=== PATIENT | female | born 1975 | race Caucasian/White ===

== ENCOUNTER 2022-08-07 15:30 | Emergency (ER) | payer OTHER, SELFPAY ==
[2022-08-07 15:35] VITALS: BP 153/95; PULSE 54; PULSE 64; PULSE 69; RESP 13; RESP 20; RESP 21; TEMP 36.8; O2SAT 100; BMI 20.4
--- NOTE | 2022-08-07 15:53 | XR_ITS ---
The [address] [address] Patient Name: DO QUINTANILLA MRN: [id number] date: 1975 Sex: F Assigned Patient Location: ER Current Patient Location: ER Accession/Order Number: [id number] Exam Date: 08/07/2022 16:15 Report Date: 08/07/2022 16:47 At the request of: CRESCENCIO WILLIAMSON Procedure: XR chest 2V EXAMINATION: XR chest 2V HISTORY: cp ; chest pain, left arm pain and numbness COMPARISON: XR chest 10/08/2015 FINDINGS: LUNGS: No significant pulmonary parenchymal abnormalities. VASCULATURE: No increased pulmonary vasculature. PLEURA: No pneumothorax, effusion, or pleural thickening. CARDIAC: No cardiomegaly or cardiac silhouette abnormality. MEDIASTINUM: No visible mass or adenopathy. BONES: No fracture or visible bone lesion. OTHER: Negative. IMPRESSION: 1. No acute cardiopulmonary process. Electronically authenticated by: EMILEE LONG Date: 08/07/2022 16:47
--- NOTE | 2022-08-07 15:54 | ECG_ITS ---
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
[2022-08-07 15:56] VITALS: PULSE 62
[2022-08-07 16:07] LABS: Basophils Percent Auto 0.5 % (0.2-2.0); Eosinophils Percent Auto 0.5 % (0.9-7.0); Hematocrit 40.5 % (36.0-48.0); Hemoglobin 14.2 g/dL (12.0-16.0); Immature Granulocytes Abs Auto 0.02 10^3/uL (0.00-0.03); Immature Granulocytes Pct Auto 0.3 % (0.0-0.5); Lymphocytes Absolute Auto 2.2 10^3/uL (1.2-3.8); Lymphocytes Percent Auto 36.2 % (20.5-60.0); Mean Corpuscular HGB Conc 35.1 g/dL (29.9-35.2); Mean Corpuscular Hemoglobin 29.9 pg (26.7-34.0); Mean Corpuscular Volume 85.3 fL (81.0-99.0); Monocytes Absolute Auto 0.5 10^3/uL (0.3-0.8); Monocytes Percent Auto 7.9 % (1.7-12.0); Neutrophils Absolute Auto 3.4 10^3/uL (1.4-6.5); Neutrophils Percent Auto 54.6 % (43.0-75.0); Platelet Count 396 10^3/uL (150-450); Red Blood Count 4.75 10^6/uL (4.20-5.40); Red Cell Distribution Width 12.2 % (11.0-15.0); White Blood Count 6.2 10^3/uL (4.0-11.0)
--- NOTE | 2022-08-07 16:07 | ED.GENADUL1 ---
HPI - General Adult General Chief complaint: Chest Pain Stated complaint: chest pain radiating down arm, panic attack Time Seen by Provider: 08/07/22 15:34 Source: patient Mode of arrival: Wheelchair Limitations: physical limitation Limitations comment: weakness History of Present Illness HPI narrative: patient is a 46-year-old female who is presenting to the Emergency Room with chief complaint of chest tightness, right elbow pain, shoulder pain, and shortness of breath since this morning. Patient woke up and had her symptoms of pain in the left arm, shoulder, and the left side of her neck. Patient has no headache, no posterior neck pain. No dull pain, nausea, vomiting. Patient had bronchitis that was diagnosed approximately July 25 or , patient was placed in a Z-Freeman. Patient cannot use steroids because a causing anxiety along with she cannot use albuterol inhaler because a causing anxiety and panic attacks. Patient has a history of smoking, she's quit smoking, quit doing [place] medical marijuana as well. Patient has had a history of being on 23 different medications, patient has gotten off all of her medications. The multiple medications were for anxiety/depression, irritable bowel syndrome and other medical problems. Patient has no cardiac history. Patient stated that she had a transient ischemic attack when she was younger. Patient has seen [facility] in the past, but she still seen him it is on no blood pressure medication at this time. Patient has no history of acute current syndrome. Patient has no cocaine use daily, currently not a smoker, no family history of cardiac disease. Patient's heart score is 1 because of age Related Data Home Medications Medication Instructions Recorded Confirmed clonazepam 0.5 mg tablet 0.5 mg PO Q8H PRN ANXIETY 08/07/22 08/07/22 Allergies Allergy/AdvReac Type Severity Reaction Status Date / Time cyclobenzaprine Allergy Severe Hives Verified 08/07/22 15:45 [From Flexeril] dicyclomine [From Bentyl] Allergy Severe Hives Verified 08/07/22 15:45 doxycycline Allergy Severe shortness Verified 08/07/22 15:47 of breath iodine Allergy Severe Anaphylaxis Verified 08/07/22 15:45 prochlorperazine Allergy Severe Hives Verified 08/07/22 15:45 [From Compazine] morphine Allergy Unknown Verified 08/07/22 15:45 Review of Systems ROS Narrative All systems are negative except as noted/marked. All systems reviewed and otherwise negative. PFSH [facility] Social History Smoking status: Former smoker Exam Narrative Exam Narrative: Nurses note and vital signs reviewed and patient is not hypoxic. General: The patient appears well and in no apparent distress. Patient is resting comfortably on cart. Patient is not toxic, lethargic, or listless Skin: Warm, dry, no pallor noted. There is no rash noted. No petechiae, purpura. Head: Normocephalic, atraumatic Eye: Normal conjunctiva, no drainage, EOMI. PERRL Ears, Nose, Mouth, and Throat: oral mucosa is moist. Nares patent. Mouth without vesicles. Cardiovascular: Regular Rate and Rhythm, no murmur, gallop, rub. no reproducible tenderness to palpation to the anterior, lateral, posterior chest wall. No chest pain or chest wall pain elicited with range of motion of left shoulder. Respiratory: Patient is in no distress, no accessory muscle use, lungs are clear to auscultation, no wheezing, rales or rhonchi Back: non-tender, no CVA tenderness bilaterally to percussion. No CT LS midline pain GI: soft, no tenderness to palpation, no masses appreciated. No rebound, guarding, or rigidity noted. No flank pain bilateral, No distention Musculoskeletal: Patient has full range of motion of all of the extremities, no motor, sensory, or focal neurological deficit. Full range of motion of left shoulder, elbow, wrist and hand without difficulty or pain. Neurological: A&O x3, normal speech Psychiatric: Cooperative Constitutional Vital Signs - 24 hr 08/07/22 15:35 08/07/22 15:35 08/07/22 15:35 Temperature 98.3 F Pulse Rate 64 54 L Pulse Rate [Monitor] 69 Respiratory Rate 20 13 21 Blood Pressure 153/95 H 153/95 H Blood Pressure [Left Arm] 153/95 H Pulse Oximetry 100 100 Oxygen Delivery Method Room Air Course Vital Signs Vital signs: Vital Signs Temperature 98.3 F 08/07/22 15:35 Pulse Rate 64 08/07/22 15:35 Respiratory Rate 20 08/07/22 15:35 Blood Pressure 153/95 H 08/07/22 15:35 Pulse Oximetry 100 08/07/22 15:35 Oxygen Delivery Method Room Air 08/07/22 15:35 Temperature 98.3 F 08/07/22 15:35 Pulse Rate 69 08/07/22 15:35 Respiratory Rate 21 08/07/22 15:35 Blood Pressure 153/95 H 08/07/22 15:35 Pulse Oximetry 100 08/07/22 15:35 Oxygen Delivery Method Room Air 08/07/22 15:35 Medical Decision Making MDM Narrative Medical decision making narrative: patient chest x-ray, EKG, lab work shows no acute changes. Patient was given 1 L of IV fluid. Patient was relieved is no acute findings. Patient stated she's had some mild intermittent coordination issues the last 1-2 days. Patient has had no coordination issues today. Patient will follow-up with PCP and referred to neurology as needed. Patient has no other questions at discharge. Patient did not want any prednisone or albuterol inhaler because she may causes her to be anxious and having panic attacks. Patient's heart score is 1 due to age, no indication for admission at this time. Medical Records Medical records narrative: chest x-ray shows no acute cardiopulmonary disease, no infiltrate, no effusion. Lab Data Lab results reviewed: Yes I reviewed the patient's lab results Labs: Lab Results 08/07/22 Range/Units 15:57 WBC 6.2 (4.0-11.0) 10^3/uL RBC 4.75 (4.20-5.40) 10^6/uL Hgb 14.2 (12.0-16.0) g/dL Hct 40.5 (36.0-48.0) % MCV 85.3 (81.0-99.0) fL MCH 29.9 (26.7-34.0) pg MCHC 35.1 (29.9-35.2) g/dL RDW 12.2 (11.0-15.0) % Plt Count 396 (150-450) 10^3/uL MPV 9.0 L (9.5-13.5) fL Neut % (Auto) 54.6 (43.0-75.0) % Lymph % (Auto) 36.2 (20.5-60.0) % [place] % (Auto) 7.9 (1.7-12.0) % Eos % (Auto) 0.5 L (0.9-7.0) % Baso % (Auto) 0.5 (0.2-2.0) % Neut # (Auto) 3.4 (1.4-6.5) 10^3/uL Lymph # (Auto) 2.2 (1.2-3.8) 10^3/uL [place] # (Auto) 0.5 (0.3-0.8) 10^3/uL Eos # (Auto) 0.0 (0.0-0.7) 10^3/uL Baso # (Auto) 0.0 (0.0-0.1) 10^3/uL Abs Immat Gran (auto) 0.02 (0.00-0.03) 10^3/uL Imm/Tot Granulo (auto) 0.3 (0.0-0.5) % D-Dimer <0.19 (<=0.59) mg/L FEU Sodium 137 (136-145) mmol/L Potassium 3.5 (3.5-5.1) mmol/L Chloride 104 (98-107) mmol/L Carbon Dioxide 24.9 (21.0-32.0) mmol/L Anion Gap 11.6 BUN 15.0 (7.0-18.0) mg/dL Creatinine 0.85 (0.55-1.02) mg/dL Est GFR ( Amer) >60 (>=60) Est GFR (Non-Af Amer) >60 (>=60) BUN/Creatinine Ratio 17.6 Glucose 110 H (74-106) mg/dL Calcium 8.8 (8.5-10.1) mg/dL Total Bilirubin 0.4 (0.2-1.0) mg/dL AST 13 L (15-37) U/L ALT 18 (14-59) U/L Alkaline Phosphatase 47 (46-116) U/L Troponin I High Sens <4.0 L (4.0-51.3) pg/mL NT-Pro-B Natriuret Pep 42.0 (<=450.0) pg/mL Total Protein 7.5 (6.4-8.2) g/dL Albumin 4.0 (3.4-5.0) g/dL Globulin 3.5 g/dL Albumin/Globulin Ratio 1.1 Lipase 104.0 (73.0-393.0) U/L ECG Data Attestation: I personally reviewed and interpreted this ECG as follows: Interpretation: EKG interpretation. No sinus rhythm at 60 beats a minute. Normal axis deviation. No acute ST elevation, no acute ectopy. QTC of 383. Discharge Plan Discharge Chief Complaint: Chest Pain Clinical Impression: Dyspnea, Arm pain, left, Atypical chest pain Patient Disposition: Home, Self-Care Prescriptions / Home Meds: No Action clonazepam 0.5 mg tablet 0.5 mg PO Q8H PRN (Reason: ANXIETY ) Instructions: Chest Pain (ED), Dyspnea (ED), Arm Pain (ED) Additional Instructions: follow-up with PCP and neurology if needed for any type of coordination difficulties that you're discussing that occurred in the near past. Increase fluids, Stand Alone Forms: Portal Instructions Referrals: Carlos Dempsey MD [Primary Care Provider] - 1 week
[2022-08-07] MEDS: ASPIRIN 81 MG TAB.CHEW 162 MG PO (16:20)
[2022-08-07] MEDS: 0.9 % SODIUM CHLORIDE 1,000 ML 1000 ML IV (16:20)
[2022-08-07 16:23] LABS: D Dimer <0.19 mg/L FEU (<=0.59)
[2022-08-07 16:31] LABS: Alanine Aminotransferase 18 U/L (14-59); Albumin Globulin Ratio 1.1; Alkaline Phosphatase 47 U/L (46-116); Anion Gap 11.6; Aspartate Amino Transferase 13 U/L (15-37); BUN Creatinine Ratio 17.6; Bilirubin Total 0.4 mg/dL (0.2-1.0); Calcium 8.8 mg/dL (8.5-10.1); Carbon Dioxide 24.9 mmol/L (21.0-32.0); Chloride 104 mmol/L (98-107); Estimated GFR (African America >60 (>=60); Estimated GFR (Non-African Ame >60 (>=60); Globulin 3.5 g/dL; Glucose 110 mg/dL (74-106); Potassium 3.5 mmol/L (3.5-5.1); Sodium 137 mmol/L (136-145); Total Protein 7.5 g/dL (6.4-8.2); Troponin I High Sensitivity <4.0 pg/mL (4.0-51.3)
[2022-08-07 17:39] VITALS: BP 112/83
== END 2022-08-07 17:44 | disposition home or self-care (01) ==
PROVIDERS: Emergency Provider Emergency Medicine; PCP Family Medicine
DX: R07.89 Other chest pain (principal); R06.00 Dyspnea, unspecified; M79.602 Pain in left arm; Z87.891 Personal history of nicotine dependence; Z79.899 Other long term (current) drug therapy; F41.9 Anxiety disorder, unspecified
CPT/HCPCS: 36415; 71046; 80053; 83690; 83880; 84484; 85025; 85378; 93005; 99285

== ENCOUNTER 2022-12-15 16:47 | Emergency (ER) | payer OTHER, MEDICAID, SELFPAY ==
[2022-12-15 16:58] VITALS: BP 139/82; PULSE 71; RESP 18; O2SAT 99; BMI 29.5
--- NOTE | 2022-12-15 17:17 | ED.ABDPAIN1 ---
HPI - Abdominal Pain General Chief Complaint: Abdominal Pain Stated Complaint: Flank Pain Time Seen by Provider: 12/15/22 17:08 Source: patient Mode of arrival: walk-in History of Present Illness HPI narrative: patient is a 47-year-old female who presents the emergency department for the evaluation of left flank pain for the last week. She states she was initially seen at the [place] emergency Department and they diagnosed her with muscular skeletal pain radiating from the left flank. She states they did a chest x-ray that was unremarkable. She was then seen at urgent care the next day and diagnosed with urinary tract infection. She states she was contacted four days ago that she was on the wrong antibiotic in a new antibiotic was called in for her. She has been taking this for the last four days. She presents to the Emergency Room today because earlier today she had what she believed were Covid-type symptoms of hot and cold chills and nausea. She states the symptoms resolved but she had a return of pain to the left flank and feels as though the left side of her abdomen is swollen. She reports pain radiating from the left flank into the left abdomen, no urinary symptoms. She has had diarrhea. She has an IUD in place, no concern for . Related Data Home Medications Medication Instructions Recorded Confirmed clonazepam 0.5 mg tablet 0.5 mg PO Q8H PRN ANXIETY 08/07/22 08/07/22 Previous Rx's Medication Instructions Recorded methocarbamol 750 mg tablet 750 mg PO TID PRN pain #20 tabs 12/15/22 naproxen sodium 550 mg tablet 550 mg PO BID PRN pain #10 tabs 12/15/22 ondansetron 4 mg disintegrating 4 mg PO Q6H PRN nausea and 12/15/22 tablet vomiting #12 tabs Allergies Allergy/AdvReac Type Severity Reaction Status Date / Time cyclobenzaprine Allergy Severe Hives Verified 08/07/22 15:45 [From Flexeril] dicyclomine [From Bentyl] Allergy Severe Hives Verified 08/07/22 15:45 doxycycline Allergy Severe shortness Verified 08/07/22 15:47 of breath iodine Allergy Severe Anaphylaxis Verified 08/07/22 15:45 prochlorperazine Allergy Severe Hives Verified 08/07/22 15:45 [From Compazine] morphine Allergy Unknown Verified 08/07/22 15:45 Review of Systems ROS Constitutional Reports: chills; Denies: fever Ears, nose, mouth, and throat Reports: throat pain Cardiovascular Denies: chest pain Respiratory Denies: shortness of breath or cough Gastrointestinal Reports: abdominal pain, nausea, vomiting and diarrhea Genitourinary Denies: painful urination or urinary frequency Musculoskeletal Reports: back pain; Denies: neck pain Integumentary/Breast Denies: rash Neurological Denies: headache PFSH PFSH Social History Smoking status: Former smoker Exam Narrative Exam Narrative: Gen.: Awake, alert, in no distress Head: Normocephalic, atraumatic ENT: Moist mucous membranes Respiratory: No respiratory distress, lungs clear bilaterally Cardio: Regular rate and rhythm Gastrointestinal: Abdomen is soft, nondistended and tender to palpation in the left upper quadrant Back: no CVA tenderness, no rashes noted Extremities: Moves extremities equally Psych: Normal mood and affect Neuro: No focal neuro deficit Skin: Warm, dry, intact Constitutional Vital Signs, click to edit/add: Last Vital Signs Pulse 71 12/15/22 16:58 Resp 18 12/15/22 16:58 BP 139/82 12/15/22 16:58 Pulse Ox 99 12/15/22 16:58 O2 Del Method Room Air 12/15/22 16:58 Course Vital Signs Vital signs: Vital Signs Pulse Rate 71 12/15/22 16:58 Respiratory Rate 18 12/15/22 16:58 Blood Pressure 139/82 12/15/22 16:58 Pulse Oximetry 99 12/15/22 16:58 Oxygen Delivery Method Room Air 12/15/22 16:58 Pulse Rate 71 12/15/22 16:58 Respiratory Rate 18 12/15/22 16:58 Blood Pressure 139/82 12/15/22 16:58 Pulse Oximetry 99 12/15/22 16:58 Oxygen Delivery Method Room Air 12/15/22 16:58 MDM - Abdominal Pain MDM Narrative Medical decision making narrative: patient was treated with IV fluids, Toradol, Zofran. She had no episodes of emesis in the Emergency Room. Her lab studies including urine specimen are unremarkable although she was noted to have mild hyponatremia. Covid test was done at her request, this is unremarkable. CT of the abdomen and pelvis was done due to pain in the left flank. This shows no evidence of acute abdominal pathology. She had a chest x-ray last week at [place] [facility]. Symptoms may be viral versus musculoskeletal, patient has no fevers, tachycardia, or vomiting in the Emergency Room. She was reexamined by attending physician. she reports improvement with Toradol. She will be discharged home with Zofran, NSAIDs, Robaxin. Follow-up with PCP and return to the Emergency Room if symptoms change or worsen. Medical Records Attestation: I reviewed the patient's medical records. Lab Data Attestation: I reviewed the patient's lab results. Labs: Lab Results 12/15/22 12/15/22 12/15/22 Range/Units 17:05 17:15 17:35 WBC 5.0 (4.0-11.0) 10^3/uL RBC 5.24 (4.20-5.40) 10^6/uL Hgb 15.0 (12.0-16.0) g/dL Hct 45.1 (36.0-48.0) % MCV 86.1 (81.0-99.0) fL MCH 28.6 (26.7-34.0) pg MCHC 33.3 (29.9-35.2) g/dL RDW 12.1 (11.0-15.0) % Plt Count 360 (150-450) 10^3/uL MPV 8.9 L (9.5-13.5) fL Neut % (Auto) 39.3 L (43.0-75.0) % Lymph % (Auto) 50.4 (20.5-60.0) % [place] % (Auto) 9.3 (1.7-12.0) % Eos % (Auto) 0.2 L (0.9-7.0) % Baso % (Auto) 0.4 (0.2-2.0) % Neut # (Auto) 2.0 (1.4-6.5) 10^3/uL Lymph # (Auto) 2.5 (1.2-3.8) 10^3/uL [place] # (Auto) 0.5 (0.3-0.8) 10^3/uL Eos # (Auto) 0.0 (0.0-0.7) 10^3/uL Baso # (Auto) 0.0 (0.0-0.1) 10^3/uL Abs Immat Gran (auto) 0.02 (0.00-0.03) 10^3/uL Imm/Tot Granulo (auto) 0.4 (0.0-0.5) % Sodium 128 L (136-145) mmol/L Potassium 3.5 (3.5-5.1) mmol/L Chloride 96 L (98-107) mmol/L Carbon Dioxide 22.2 (21.0-32.0) mmol/L Anion Gap 13.3 BUN 8.0 (7.0-18.0) mg/dL Creatinine 0.88 (0.55-1.02) mg/dL Est GFR ( Amer) >60 (>=60) Est GFR (Non-Af Amer) >60 (>=60) BUN/Creatinine Ratio 9.1 Glucose 96 (74-106) mg/dL Lactate 1.1 (0.4-2.0) mmol/L Calcium 9.0 (8.5-10.1) mg/dL Total Bilirubin 0.3 (0.2-1.0) mg/dL AST 14 L (15-37) U/L ALT 18 (14-59) U/L Alkaline Phosphatase 72 (46-116) U/L Total Protein 8.3 H (6.4-8.2) g/dL Albumin 4.4 (3.4-5.0) g/dL Globulin 3.9 g/dL Albumin/Globulin Ratio 1.1 Lipase 27.0 (16.0-77.0) U/L Serum HCG, Qual Negative (NEGATIVE) Urine Color Lt. yellow (YELLOW) Urine Clarity Clear (CLEAR) Urine pH 6.0 (5.0-9.0) Ur Specific [place] 1.025 (1.005-1.025) Urine Protein Negative (NEG/TRACE) mg/dL Urine Glucose (UA) Negative (NEGATIVE) mg/dL Urine Ketones 15 A (NEGATIVE) mg/dL Urine Occult Blood Negative (NEGATIVE) Urine Nitrite Negative (NEGATIVE) Urine Bilirubin Negative (NEGATIVE) Urine Urobilinogen 0.2 (0.2-1.0) EU/dL Ur Leukocyte Esterase Negative (NEGATIVE) SARS-CoV-2 (PCR) Negative (NEGATIVE) Imaging Data CT scan - abdomen: Attestation: I have reviewed the pertinent imaging results. Radiologist's impression: Procedure: CT abdomen pelvis wo con EXAM: CT abdomen pelvis wo con TECHNIQUE: Axial CT images were obtained of the abdomen and pelvis without intravenous contrast. Sagittal and coronal reformatted images were also obtained. Dose reduction techniques were achieved by using automated exposure control and/or adjustment of mA and/or kV according to patient size and/or use of iterative reconstruction technique. HISTORY: Left flank COMPARISON: None. FINDINGS: Lower chest: The lower lungs are clear. Liver: Tiny cyst at the periphery of segment 8 of the liver. Gallbladder: The gallbladder is unremarkable. There is no intra or extrahepatic biliary dilatation. Pancreas: The pancreas is homogeneous without evidence for mass lesion or inflammation. Spleen: The spleen is unremarkable without evidence for mass lesion. Adrenal glands: The adrenal glands are unremarkable Kidneys and bladder: The kidneys are unremarkable with no evidence for mass lesion, hydronephrosis or inflammation. The ureters demonstrate normal caliber. The urinary bladder appears unremarkable given lack of distention. GI Tract: Stomach is unremarkable. Visualized small bowel is unremarkable without evidence for obstruction or active inflammation. The appendix is unremarkable.The visualized portion of the large bowel is unremarkable. Reproductive: Intrauterine device in place. Lymph nodes: No retroperitoneal or abdominal lymphadenopathy. Vascular: The aorta is not dilated. Peritoneum: No free intraperitoneal air or fluid. No acute inflammation. Abdominal wall: Unremarkable without acute abnormality. IMPRESSION: No acute abdominal pathology. No acute inflammatory process. No obstructing urinary tract stone. No evidence for bowel obstruction. Electronically authenticated by: AILEEN CLEVELAND Date: 12/15/2022 18:07 Discharge Plan Discharge Chief Complaint: Abdominal Pain Clinical Impression: Left flank pain Patient Disposition: Home, Self-Care Time of Disposition Decision: 18:19 Condition: Good Prescriptions / Home Meds: New methocarbamol 750 mg tablet 750 mg PO TID PRN (Reason: pain) Qty: 20 0RF ondansetron 4 mg tablet,disintegrating 4 mg PO Q6H PRN (Reason: nausea and vomiting) Qty: 12 0RF naproxen sodium 550 mg tablet 550 mg PO BID PRN (Reason: pain) Qty: 10 0RF No Action clonazepam 0.5 mg tablet 0.5 mg PO Q8H PRN (Reason: ANXIETY ) Instructions: Flank Pain (ED) Stand Alone Forms: Portal Instructions Referrals: Physician,Non-Staff, MD [Primary Care Provider] - 1 week
[2022-12-15] MEDS: 0.9 % SODIUM CHLORIDE 1,000 ML 999 ML IV (17:27)
[2022-12-15] MEDS: KETOROLAC TROMETHAMINE 30 MG/ML VIAL IVP (17:27)
[2022-12-15] MEDS: ONDANSETRON PF 4 MG/2 ML VIAL IV (17:28)
[2022-12-15 17:33] LABS: Basophils Percent Auto 0.4 % (0.2-2.0); Eosinophils Percent Auto 0.2 % (0.9-7.0); Hematocrit 45.1 % (36.0-48.0); Immature Granulocytes Abs Auto 0.02 10^3/uL (0.00-0.03); Immature Granulocytes Pct Auto 0.4 % (0.0-0.5); Lymphocytes Absolute Auto 2.5 10^3/uL (1.2-3.8); Lymphocytes Percent Auto 50.4 % (20.5-60.0); Mean Corpuscular HGB Conc 33.3 g/dL (29.9-35.2); Mean Corpuscular Hemoglobin 28.6 pg (26.7-34.0); Mean Corpuscular Volume 86.1 fL (81.0-99.0); Mean Platelet Volume 8.9 fL (9.5-13.5); Monocytes Absolute Auto 0.5 10^3/uL (0.3-0.8); Monocytes Percent Auto 9.3 % (1.7-12.0); Neutrophils Percent Auto 39.3 % (43.0-75.0); Platelet Count 360 10^3/uL (150-450); Red Blood Count 5.24 10^6/uL (4.20-5.40); Red Cell Distribution Width 12.1 % (11.0-15.0)
[2022-12-15 17:37] LABS: Bilirubin Urine NEGATIVE (NEGATIVE); Blood Urine NEGATIVE (NEGATIVE); Clarity Urine CLEAR (CLEAR); Color Urine LT. YELLOW (YELLOW); Glucose Urine UA NEGATIVE (NEGATIVE); Ketones Urine 15 mg/dL (NEGATIVE); Leukocyte Esterase Urine NEGATIVE (NEGATIVE); Nitrite Urine NEGATIVE (NEGATIVE); Protein Urine NEGATIVE (NEG/TRACE); Specific Gravity Urine 1.025 (1.005-1.025); Urobilinogen Urine 0.2 EU/dL (0.2-1.0)
[2022-12-15 17:43] LABS: Urine Microscopic Indicated NO
[2022-12-15 17:44] LABS: Alanine Aminotransferase 18 U/L (14-59); Albumin Globulin Ratio 1.1; Albumin Level 4.4 g/dL (3.4-5.0); Alkaline Phosphatase 72 U/L (46-116); Anion Gap 13.3; Aspartate Amino Transferase 14 U/L (15-37); BUN Creatinine Ratio 9.1; Bilirubin Total 0.3 mg/dL (0.2-1.0); Carbon Dioxide 22.2 mmol/L (21.0-32.0); Chloride 96 mmol/L (98-107); Estimated GFR (African America >60 (>=60); Estimated GFR (Non-African Ame >60 (>=60); Globulin 3.9 g/dL; Glucose 96 mg/dL (74-106); HCG Qualitative NEGATIVE (NEGATIVE); Potassium 3.5 mmol/L (3.5-5.1); Sodium 128 mmol/L (136-145); Total Protein 8.3 g/dL (6.4-8.2)
[2022-12-15 17:47] LABS: Lactate/Lactic Acid 1.1 mmol/L (0.4-2.0)
[2022-12-15 17:54] LABS: SARS-CoV-2 Ag NEGATIVE (NEGATIVE)
[2022-12-15 18:45] VITALS: BP 125/69; PULSE 70; RESP 12; TEMP 36.9; O2SAT 98
[2022-12-16 15:51] LABS: SARS-CoV-2 NAA NOT DETECTED (NOT DETECTE)
== END 2022-12-15 18:45 | disposition home or self-care (01) ==
PROVIDERS: Physician Assistant; Emergency Provider Emergency Medicine
DX: R10.9 Unspecified abdominal pain (principal); Z79.899 Other long term (current) drug therapy; Z97.5 Presence of (intrauterine) contraceptive device; Z87.891 Personal history of nicotine dependence; Z20.822 Contact with and (suspected) exposure to COVID-19
CPT/HCPCS: 36415; 74176; 80053; 81003; 83605; 83690; 84703; 85025; 87635; 87811; 96361; 96374; 96375; 99285

== ENCOUNTER 2023-12-19 14:10 | Emergency (ER) | payer OTHER, MEDICAID, SELFPAY ==
[2023-12-19] VITALS (18 sets, daily range): BP systolic 107–152; BP diastolic 60–74; PULSE 56–74; TEMP 36.7; O2SAT 95–99; BMI 21.3
--- NOTE | 2023-12-19 14:23 | XR_ITS ---
The [address] [address] Patient Name: DO QUINTANILLA MRN: [id number] date: 1975 Sex: F Assigned Patient Location: ER Current Patient Location: ER Accession/Order Number: [id number] Exam Date: 12/19/2023 14:32 Report Date: 12/19/2023 16:04 At the request of: MARCO ANTONIO FIELDS Procedure: XR chest 1V EXAM: XR chest 1V HISTORY: chest pain COMPARISON: 08/07/2022 TECHNIQUE: Portable semiupright AP view of the chest. FINDINGS: There are no tubes or implants noted. The cardiomediastinal silhouette and pulmonary vasculature are within normal limits. There is a nodular opacity seen in the left lower lung zone measuring approximately 1.2 centimeters. No pneumothorax or pleural effusion. No displaced rib fractures. Osseous structures demonstrate degenerative changes. Soft tissues are grossly normal. XR/XR chest 1V IMPRESSION: No acute cardiopulmonary abnormality. Nodular opacity seen in the left lower lung zone measuring approximately 1.2 centimeters. This may represent a nipple shadow. Reimaging with nipple markers or CT for further evaluation as clinically warranted. Electronically authenticated by: ANNIE MORAN Date: 12/19/2023 16:04
--- NOTE | 2023-12-19 14:23 | ECG_ITS ---
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
--- NOTE | 2023-12-19 14:37 | ED_ITS ---
HPI HPI - General Adult General Chief complaint: Back Pain/Injury Stated complaint: SEVERE JAWL PAIN AND BACK PAIN Time Seen by Provider: 12/19/23 14:13 Source: patient Mode of arrival: walk-in History of Present Illness HPI narrative: 48-year-old female to the emergency department with multiple chief complaints. Patient reports that she has had chest pain throughout the day today. She is unable to characterize it. She reports it is constant. She has had pain like this in the past. Patient also reports the chest pain seem to began after an episode last night while she was at a [employer]. Patient reports that she was doing a significant amount of dancing and drinking of alcohol for 4 hours at a [employer]. She reports that she began to feel more tipsy and felt like she was losing control of her motors . Reports that she began to feel very warm and flushed. She reports that her muscles were cramping up. She developed the chest pain during this time. She reports that just thinking about this episode gives her worse chest pain. When asked to describe the pain she reports it feels as though she can tell where the blood is flowing through her body at any given time from her hands to the middle of her mouth. Self-reported past medical history: Fibromyalgia, history of seizures, Arsenic poisoning, Mercury poisoning Related Data Home Medications ?Medication ?Instructions ?Recorded ?Confirmed clonazepam 0.5 mg tablet 0.5 mg PO Q8H PRN ANXIETY 08/07/22 08/07/22 Previous Rx's ?Medication ?Instructions ?Recorded methocarbamol 750 mg tablet 750 mg PO TID PRN pain #20 tabs 12/15/22 naproxen sodium 550 mg tablet 550 mg PO BID PRN pain #10 tabs 12/15/22 ondansetron 4 mg disintegrating 4 mg PO Q6H PRN nausea and 12/15/22 tablet vomiting #12 tabs Allergies Allergy/AdvReac Type Severity Reaction Status Date / Time cyclobenzaprine (From Allergy Severe Hives Verified 08/07/22 15:45 Flexeril) dicyclomine (From Bentyl) Allergy Severe Hives Verified 08/07/22 15:45 doxycycline Allergy Severe shortness Verified 08/07/22 15:47 of breath iodine Allergy Severe Anaphylaxis Verified 08/07/22 15:45 prochlorperazine (From Allergy Severe Hives Verified 08/07/22 15:45 Compazine) morphine Allergy Unknown Verified 08/07/22 15:45 Opioid HPI Opioid Management Most Recent Opioid Data: Last Pain Scale 7 12/15/22 17:27 12/15/22 Review of Systems ROS Status of ROS 10 or more systems reviewed and unremark able except as noted in history and below [facility] Social History Smoking status: Former smoker Little interest or pleasure in doing things: not at all Feeling down, depressed, or hopeless: not at all Exam Narrative Exam Narrative: VITALS: I have reviewed the triage vital signs. GENERAL: Well developed, well appearing adult female in no acute distress. NEURO: Alert and oriented. Moves all extremities. Face is symmetric and expressive. EYES: PERRL. No scleral icterus or conjunctival injection. No discharge. HENT: Normocephalic, atraumatic. Hearing is grossly intact. Nares grossly patent and without discharge. Mucous membranes moist. NECK: No JVD. Patient moves neck without restriction. CARDIO: Rhythm regular. Normal rate. No murmur, rub, or gallop. Pulses equal bilaterally in the upper and lower extremity. No lower extremity edema. PULM: Lungs clear to auscultation in all rudolph. No wheezes, rales, or rhonchi. No conversational dyspnea. No splinting, stridor, or accessory muscle use. GI/: Abdomen is soft and non-tender. Normoactive bowel sounds. EXTREMITIES: Symmetric muscle bulk. No joint swelling. No clubbing, cyanosis, or deformity. SKIN: Warm and dry. Normal turgor. No rash or lesions appreciated. PSYCH: Strange affect, anxious Constitutional Vital Signs, click to edit/add: Last Vital Signs Temp 98.0 F 12/19/23 14:13 Pulse 70 12/19/23 14:13 Resp 16 12/19/23 14:13 BP 152/60 H 12/19/23 14:13 Pulse Ox 99 12/19/23 14:13 O2 Del Method Room Air 12/19/23 14:13 Course Vital Signs Vital signs: Vital Signs Temperature 98.0 F 12/19/23 14:13 Pulse Rate 70 12/19/23 14:13 Respiratory Rate 16 12/19/23 14:13 Blood Pressure 152/60 H 12/19/23 14:13 Pulse Oximetry 99 12/19/23 14:13 Oxygen Delivery Method Room Air 12/19/23 14:13 Temperature 98.0 F 12/19/23 14:13 Pulse Rate 70 12/19/23 14:13 Respiratory Rate 16 12/19/23 14:13 Blood Pressure 152/60 H 12/19/23 14:13 Pulse Oximetry 99 12/19/23 14:13 Oxygen Delivery Method Room Air 12/19/23 14:13 Medical Decision Making MDM Narrative Medical decision making narrative: 48-year-old female to the emergency department with chief complaint of chest pain. Vital stable, the patient is afebrile. She appears in no distress. She reports she does have some chest pain, she does tell a somewhat bizarre story about events occurring last night that sounds like a panic attack while she was intoxicated at a [employer]. Cardiac workup is initiated. Patient agrees with this plan. Her EKG is without evidence of ischemia. PERC negative in this low risk patient effectively ruling out VTE. Lab work is reviewed and noted. Mild hypokalemia. Her troponin is negative x 2. Her troponin is undetectable greater than 3 hours out from onset of chest pain, low risk. She is low risk by heart score.Chest x-ray notes nipple shadow versus nodule. I discussed with the patient. She reports that she had a marker placed in this area when she had a benign lesion biopsied. Discussed findings with the patient. Potassium is repleted orally. Return precautions were discussed. All questions were answered. She has a plan to follow-up with her doctor this week to discuss. All questions were answered. The patient was discharged home. Heart Score for Major Cardiac Event History: Example factors for history - pattern of chest pain, onset, duration, relation with exercise, stress or cold, localization, concomitant symptoms. reaction to sublingual nitrates, [] Highly suspicious +2 [] Moderately suspicious +1 [x] Slightly suspicious 0 EKG: [] Significant ST-Depression +2 [x] Non specific repolarization disturbance +1 [] Normal 0 Age: [] >= 65 +2 [x] 45-65 + 1 [] <45 0 Risk Factors: (HLD, HTN, DM, Cigarette Smoking, Pos Family Hx, Obesity) [] >3 risk factors or hx of atherosclerotic disease + 2 [x] 1-2 risk factors + 1 [] No risk factors known 0 Troponin: [] >= 3X normal + 2 [] 1-3X normal + 1 [x] <= Normal 0 [x] 0-3 Points 0.9 - 1.7% risk of major adverse cardiac event in 6 weeks [] 4-6 Points 12-16.6% risk of major adverse cardiac event in 6 weeks [] 7-10 Points 50-65% risk of major adverse cardiac event in 6 weeks [] 0-3 Points with 2 sets of negative cardiac markers <1% risk of major adverse cardiac event in 30 days. Medical Records Medical records reviewed: Yes I reviewed the patient's medical records Lab Data Lab results reviewed: Yes I reviewed the patient's lab results Labs: Lab Results 12/19/23 12/19/23 Range/Units 14:34 15:49 WBC 16.8 H (4.0-11.0) 10^3/uL RBC 4.80 (4.20-5.40) 10^6/uL Hgb 14.2 (12.0-16.0) g/dL Hct 40.5 (36.0-48.0) % MCV 84.4 (81.0-99.0) fL MCH 29.6 (26.7-34.0) pg MCHC 35.1 (29.9-35.2) g/dL RDW 12.3 (11.0-15.0) % Plt Count 273 (150-450) 10^3/uL MPV 9.8 (9.5-13.5) fL Neut % (Auto) 79.0 H (43.0-75.0) % Lymph % (Auto) 14.5 L (20.5-60.0) % [place] % (Auto) 5.8 (1.7-12.0) % Eos % (Auto) 0.1 L (0.9-7.0) % Baso % (Auto) 0.2 (0.2-2.0) % Neut # (Auto) 13.3 H (1.4-6.5) 10^3/uL Lymph # (Auto) 2.4 (1.2-3.8) 10^3/uL [place] # (Auto) 1.0 H (0.3-0.8) 10^3/uL Eos # (Auto) 0.0 (0.0-0.7) 10^3/uL Baso # (Auto) 0.0 (0.0-0.1) 10^3/uL Abs Immat Gran (auto) 0.06 H (0.00-0.03) 10^3/uL Imm/Tot Granulo (auto) 0.4 (0.0-0.5) % Sodium 140 (136-145) mmol/L Potassium 3.3 L (3.5-5.1) mmol/L Chloride 104 (98-107) mmol/L Carbon Dioxide 24.1 (21.0-32.0) mmol/L Anion Gap 15.2 BUN 7.0 (7.0-18.0) mg/dL Creatinine 0.82 (0.55-1.02) mg/dL Est GFR ( Amer) >60 (>=60 mL/min/1.73m^2) Est GFR (Non-Af Amer) >60 (>=60 mL/min/1.73m^2) BUN/Creatinine Ratio 8.5 Glucose 97 (74-106) mg/dL Calcium 9.2 (8.5-10.1) mg/dL Total Bilirubin 0.9 (0.2-1.0) mg/dL AST 14 L (15-37) U/L ALT 14 (14-59) U/L Alkaline Phosphatase 51 (46-116) U/L Troponin I High Sens <4.0 L <4.0 L (4.0-51.3) pg/mL Total Protein 7.6 (6.4-8.2) g/dL Albumin 4.2 (3.4-5.0) g/dL Globulin 3.4 g/dL Albumin/Globulin Ratio 1.2 Lipase 22.0 (16.0-77.0) U/L Imaging Data Chest x-ray: Attestation: I have reviewed the pertinent imaging results. Radiologist's impression: ITS Impressions Chest X-Ray 12/19/23 14:23 IMPRESSION: No acute cardiopulmonary abnormality. Nodular opacity seen in the left lower lung zone measuring approximately 1.2 centimeters. This may represent a nipple shadow. Reimaging with nipple markers or CT for further evaluation as clinically warranted. Electronically authenticated by: ANNIE MORAN Date: 12/19/2023 16:04 ECG Data Attestation: I personally reviewed and interpreted this ECG as follows: (Normal sinus rhythm. No STEMI. Normal QTc.) Discharge Plan Discharge Chief Complaint: Back Pain/Injury Clinical Impression: Chest pain Patient Disposition: Home, Self-Care Time of Disposition Decision: 16:41 Condition: Good Mode of Transportation: Private Vehicle Prescriptions / Home Meds: No Action clonazepam 0.5 mg tablet 0.5 mg PO Q8H PRN (Reason: ANXIETY ) methocarbamol 750 mg tablet 750 mg PO TID PRN (Reason: pain) Qty: 20 0RF ondansetron 4 mg tablet,disintegrating 4 mg PO Q6H PRN (Reason: nausea and vomiting) Qty: 12 0RF naproxen sodium 550 mg tablet 550 mg PO BID PRN (Reason: pain) Qty: 10 0RF Print Language: Luxembourgish Instructions: Chest Pain (ED) Additional Instructions: Call the office of your primary care doctor to arrange for follow-up within the above-stated timeframe. Your ED visit was focused on your acute issue and does not replace primary care. You should review your labs, imaging, and diagnoses from this ED visit with your primary care physician. There may be non-emergent/ incidental findings that need further evaluation. You should review your vital signs including blood pressure with your PCP. If you were prescribed medications you should discuss possible side-effects and drug interactions with your pharmacist. Call 911 or go to the nearest Emergency Department if you develop any new or worsening symptoms. Seek immediate medical attention if you develop: worsening chest pain, new chest pain, nausea, vomiting, weakness, numbness, tingling, excessive sweating, shortness of breath, difficulty breathing, loss of motion in your arms or legs, or any new or worsening symptoms. Referrals: BELEM DILL [Physician] - 1 week Physician,Non-Staff, MD [Primary Care Provider] - 1 week
[2023-12-19 14:41] LABS: Basophils Percent Auto 0.2 % (0.2-2.0); Eosinophils Percent Auto 0.1 % (0.9-7.0); Hematocrit 40.5 % (36.0-48.0); Hemoglobin 14.2 g/dL (12.0-16.0); Immature Granulocytes Abs Auto 0.06 10^3/uL (0.00-0.03); Immature Granulocytes Pct Auto 0.4 % (0.0-0.5); Lymphocytes Absolute Auto 2.4 10^3/uL (1.2-3.8); Lymphocytes Percent Auto 14.5 % (20.5-60.0); Mean Corpuscular HGB Conc 35.1 g/dL (29.9-35.2); Mean Corpuscular Hemoglobin 29.6 pg (26.7-34.0); Mean Corpuscular Volume 84.4 fL (81.0-99.0); Mean Platelet Volume 9.8 fL (9.5-13.5); Monocytes Percent Auto 5.8 % (1.7-12.0); Neutrophils Absolute Auto 13.3 10^3/uL (1.4-6.5); Platelet Count 273 10^3/uL (150-450); Red Cell Distribution Width 12.3 % (11.0-15.0); White Blood Count 16.8 10^3/uL (4.0-11.0)
[2023-12-19 14:59] LABS: Alanine Aminotransferase 14 U/L (14-59); Albumin Globulin Ratio 1.2; Albumin Level 4.2 g/dL (3.4-5.0); Alkaline Phosphatase 51 U/L (46-116); Anion Gap 15.2; Aspartate Amino Transferase 14 U/L (15-37); BUN Creatinine Ratio 8.5; Bilirubin Total 0.9 mg/dL (0.2-1.0); Calcium 9.2 mg/dL (8.5-10.1); Carbon Dioxide 24.1 mmol/L (21.0-32.0); Chloride 104 mmol/L (98-107); Estimated GFR (African America >60 (>=60 mL/min/1.73m^2); Estimated GFR (Non-African Ame >60 (>=60 mL/min/1.73m^2); Globulin 3.4 g/dL; Glucose 97 mg/dL (74-106); Potassium 3.3 mmol/L (3.5-5.1); Sodium 140 mmol/L (136-145); Total Protein 7.6 g/dL (6.4-8.2); Troponin I High Sensitivity <4.0 pg/mL (4.0-51.3)
--- NOTE | 2023-12-19 15:36 | ECG_ITS ---
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
[2023-12-19 16:13] LABS: Troponin I High Sensitivity <4.0 pg/mL (4.0-51.3)
[2023-12-19] MEDS: POTASSIUM CHLORIDE 10 MEQ ER TABLET 40 MEQ PO (16:57)
== END 2023-12-19 17:05 | disposition home or self-care (01) ==
PROVIDERS: Emergency Provider Student in an Organized Health Care Education/Training Program
DX: R07.9 Chest pain, unspecified (principal); M79.7 Fibromyalgia; Z87.891 Personal history of nicotine dependence
CPT/HCPCS: 36415; 71045; 80053; 83690; 84484; 85025; 93005; 99285

== ENCOUNTER 2024-04-05 14:01 | Emergency (ER) | payer OTHER, MEDICAID, SELFPAY ==
[2024-04-05 14:08] VITALS: BP 128/85; PULSE 68; TEMP 36.7; O2SAT 100; BMI 19.8
--- NOTE | 2024-04-05 14:19 | ECG_ITS ---
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
--- OUTSIDE RECORDS SUMMARY | 2024-04-05 14:23 | XMS_ITS | CCD ---
Author Organization [facility] CliniSyvt Care Team Providers Care Delivery Assistant Name Role Phone FAITH MCCAIN Unavailable Unavailabl e Hercher, Delisa L Unavailable Unavailable Hercher, Delisa L Unavailable Unavailable Provider, None Unavailable Unavailable Allan, William Unavailable Allan, William Unavailable Spencer Orozco Unavailable Allan, DO William Aguiar Primary Care Provider Allan, DO William Aguiar Attending Provider [phone] DR BRENDA MONZON Primary Care Unavailable LUCILLE, DR FRANCHESCA Boykin Consulting Unavailable SYLVIA ., DR LANDRY Attending Unavailable HAY ., DR LANDRY Admitting Unavailable HAY ., DR LANDRY Consulting Unavailable Judy Johnson Unavailable Gissel Lee Unavailable Allan, DO William Aguiar Primary Care Provider [phone] Allan, DO William Aguiar Attending Provider Allan DO, William Aguiar Primary Care Provider ALLAN, WILLIAM N Referring Unavailable ALLAN, WILLIAM N Primary Care Unavailable ALLAN, WILLIAM N Primary Care Unavailable BROOK ESTRELLA Referring Unavailable ROE GONZALEZ Referring Unavailable ALLAN, WILLIAM N Primary Care Unavailable BHUPINDER Lee Attending Provider Allan, William N Attending Unavailable Allan, William N Primary Care Unavailable Allan, William N Admitting Unavailable Gissel Lee Attending Unavailable Gissel Lee Admitting Unavailable ALLAN, WILLIAM N Primary Care Unavailable FALLON BALES Attending Unavailable Allergies Allergy Classification Reported Allergen(s) Allergy Type Date of Onset Reaction(s) Facility (11 sources) dicyclomine; Translations: [DICYCLOMINE HCL] Drug Allergy 6 Anaphylaxis [facility] Repository (20 sources) iodine; Translations: [IODINE] Drug Allergy 3 anaphylaxis, Rash [facility] Repository (19 sources) prochlorperazin e; Translations: [PROCHLORPERAZI NE] Drug Allergy 6 Abnormal Behavior [facility] Repository (17 sources) cyclobenzaprine ; Translations: [Flexeril] Drug Allergy 3 anxiety [facility] Repository (20 sources) Dicyclomine Drug Allergy 2 anxiety, Hives, Hives, anxiety [facility] (20 sources) Morphine; Translations: [MORPHINE] Drug Allergy 9 Abnormal Behavior [facility] (17 sources) Prochlorperazin e; Translations: [Compazine] Drug Allergy 3 anxiety [facility] Repository (17 sources) cyclobenzaprine ; Translations: [CYCLOBENZAPRIN E] Drug Allergy 9 Abnormal Behavior, Rash [facility] (7 sources) cigarette smoke; Translations: [cigarette smoke] Allergy to substance 2 Unknown Reaction [facility] (1 source) Dicyclomine Drug Allergy 3 [facility] Rep[facility] (1 source) Morphine Drug Allergy 3 [facility] Repository (8 sources) Doxycycline Drug Allergy 4 SOB, dizziness, panic attack [facility] (10 sources) Iodinated Contrast Media; Translations: [IODINATED CONTRAST MEDIA] Propensity to adverse reactions to drug 7 [facility] (1 source) Dicyclomine Drug Allergy 4 [facility] Repository (1 source) Doxycycline Drug Allergy 4 [facility] Repository (1 source) Morphine Drug Allergy 4 [facility] Repository Medications Current Medications Medication Drug Class(es) Dates Sig (Normalized) Sig (Original) baclofen 10 mg oral tablet (2 sources) gamma-Aminobuty jordon Acid-ergic Agonist Start: 10-11-2020 take 1 tablet by mouth every twelve hours Baclofen 10 MG 1 tablet as needed Orally Twice a day for 30 day(s) Sep, Active cholecalciferol 1.25 mg oral capsule (16 sources) Vitamin D Start: 08-12-2023 take 1 capsule by mouth every week Cholecalciferol (Vitamin D3) 1,250 mcg (50,000 unit) capsule Active 1250 MCG PO every week 13 August 11, 2023 11:00pm Start: 12-03-2018 End: 09-11-2019 take 1 capsule by mouth once daily Cholecalciferol (Vitamin D3) (Vitamin D3) 1,000 unit Capsule Discontinued 1000 UNIT PO Daily December 02, 2018 11:00pm September 11, 2019 3:49pm Start: 02-16-2018 End: 12-03-2018 take 1 capsule by mouth once daily Cholecalciferol (Vitamin D3) 5,000 unit Capsule Discontinued 5000 UNIT PO Daily 14 February 16, 2018 12:00am December 03, 2018 6:58pm clonazePAM 1 mg oral tablet (20 sources) Benzodiazepine Start: 08-10-2023 End: 08-12-2023 take 1 tablet by mouth twice daily as needed Clonazepam 1 mg tablet Active 1 MG PO Twice daily as needed August 12, 2023 10:41am 1 tablet Orally TWICE DAILY Start: 02-16-2018 End: 08-10-2023 take 1 tablet by mouth twice daily Clonazepam 0.5 mg tablet Discontinued 0.5 MG PO Twice daily 6 3 December 10, 2018 11:00pm August 16, 2019 11:55am Start: 11-18-2016 End: 02-16-2018 take 1 tablet by mouth three times daily Clonazepam (Klonopin) 0.5 mg Tablet Discontinued 0.5 MG PO Three times daily November 17, 2016 11:00pm February 16, 2018 11:03am take 1 tablet by bhavna twice daily as needed KlonoPIN 1 MG 1 tablet Orally TWICE DAILY PRN Active copper 313 mg drug implant (8 sources) Copper-containing Intrauterine Device copper (PARAGARD T 380A) 380 square mm intrauterine device IUD 1 each by intrauterine route once. 0 Active doxycycline hyclate 100 mg oral tablet (2 sources) Tetracycline-class Drug Start: 2022 take 1 tablet by mouth every twelve hours Doxycycline Hyclate 100 MG 1 tablet Orally Twice a day for 10 day(s) June, Active Ensure Active High Protein - (2 sources) Start: 2021 take 237 mL by mouth twice daily Ensure Active High Protein - 237 mL Orally twice a day for 90 day(s) Sep, Active Handicap placards as directed (8 sources) Handicap placard s as directed as directed as directed as directed Active lidocaine 0.05 mg/mg medicated patch (8 sources) Antiarrhythmic, Amide Local Anesthetic Start: 2022 apply 1 dose transdermal route once daily, then apply 1 dose transdermal route every twelve hours lidocaine (LIDODERM) 5 % Place 1 patch on the skin daily. Remove & Discard patch within 12 hours or as directed by 15 patch 0 12/03/2022 Active meloxicam 15 mg oral tablet (1 source) Nonsteroidal Anti-inflammatory Drug Start: 2024 take 1 tablet by mouth once daily Meloxicam 15 mg tablet Active 15 MG PO Daily April 04, 2024 12:00am nitrofurantoin, macrocrystals 25 mg / nitrofurantoin, monohydrate 75 mg oral capsule (9 sources) Nitrofuran Antibacterial Start: 2022 take 1 capsule by mouth twice daily nitrofurantoin, macrocrystal-monoh ydrate, (MACROBID) 100 mg capsule TAKE 1 CAPSULE (100 MG) BY MOUTH TWICE DAILY FOR 5 DAYS UNTIL GONE. 0 12/05/2022 Active take 1 capsule by mo okh every twelve hours Macrobid 100 MG 1 capsule with food Oral ly every 12 hrs for 5 days Active potassium chloride 20 meq extended release oral tablet (14 sources) Start: 10-11-2020 take 1 tablet by bhavan every twenty-four hours Potassium Chloride ER 20 MEQ 1 tablet with food Orally Once a day for 30 day(s) Sep, Active Start: 12-03-2018 End: 12-11-2018 take 1 tablet by mouth once daily Potassium Chloride 20 mEq tablet extended release Discontinued 20 MEQ PO Daily December 02, 2018 11:00pm December 11, 2018 1:45pm Start: 02-12-2017 End: 02-07-2018 take 1 capsule by mouth twice daily at mealtime Potassium Chloride 10 mEq capsule, extended release Discontinued 10 MEQ PO Twice daily February 12, 2017 12:00am February 07, 2018 5:59pm administer with food (meal or snack) Completed/Discontinued Medications Medication Drug Class(es) Dates Sig (Normalized) Sig (Original) ALPRAZolam 0.5 mg oral tablet (12 sources) Benzodiazepine Start: 12-17-2016 End: 02-07-2018 take 1 tablet by mouth once daily at bedtime as needed for anxiety Alprazolam 0.5 mg Tablet Discontinued 0.5 MG PO Daily at bedtime as needed for Anxiety 0 June 06, 2017 10:06am February 07, 2018 5:59pm amoxicillin 500 mg oral tablet (7 sources) Penicillin-class Antibacterial Start: 10-06-2019 End: 11-18-2019 take 1 tablet by mouth twice daily Amoxicillin 500 mg tablet Discontinued 500 MG PO Twice daily 14 October 05, 2019 11:00pm November 18, 2019 9:31am take 1 capsule by mo ut every eight hours Amoxicillin 500 MG 1 capsule Orally ever y 8 hrs Active azithromycin 500 mg oral tablet (6 sources) Macrolide Antimicrobial Start: 11-11-2023 End: 04-04-2024 take 2 tablets by mouth once daily Azithromycin 500 mg tablet Discontinued 1000 MG PO daily 2 November 10, 2023 11:00pm April 04, 2024 2:57pm Start: 11-11-2023 take 1000 mg by mout h once daily Azithromycin Active 1000 MG PO daily 2 November 11, 2023 12:00am Start: 07-26-2022 Azithromycin 2 50 MG 2 tablet on the first day, then 1 tablet daily for 4 days Orally as directed for 5 days June, Active Azithromycin 250 MG 2 tablet on the first day, then 1 tablet daily for 4 days Orally Once a day Active busPIRone hydrochloride 10 mg oral tablet (20 sources) Start: 11-22-2018 End: 08-10-2023 take 3 tablets by mouth twice daily Buspirone 10 mg tablet Discontinued 30 MG PO Twice daily November 22, 2018 4:25pm August 10, 2023 7:50am Start: 11-22-2018 End: 08-10-2023 take 30 mg by mouth twice daily Buspirone Discontinued 30 MG PO Twice daily November 22, 2018 5:25pm August 10, 2023 8:50am Start: 02-16-2018 End: 11-22-2018 take 1 tablet by mouth twice daily Buspirone 10 mg Tablet Discontinued 10 MG PO Twice daily February 16, 2018 12:00am November 22, 2018 4:25pm Start: 12-17-2016 End: 02-07-2018 take 1 tablet by mouth three times daily Buspirone 7.5 mg Tablet Discontinued 7.5 MG PO Three times daily December 16, 2016 11:00pm February 07, 2018 5:59pm take 1 tablet by bhavna every twelve hours busPIRone HCl 30 MG 1 tablet Orally Twice a day Not-Taking cefdinir 300 mg oral capsule (6 sources) Cephalosporin Antibacterial Start: 01-27-2020 End: 10-08-2020 take 1 capsule by mouth every twelve hours Cefdinir 300 mg capsule Discontinued 300 MG PO Q12H 18 12January 27, 2020 12:00am October 08, 2020 9:42am cephalexin 500 mg oral capsule (19 sources) Cephalosporin Antibacterial Start: 06-03-2021 End: 08-10-2023 take 2 capsules by mouth twice daily Cephalexin 500 mg capsule Discontinued 1000 MG PO Twice daily 25 09June 02, 2021 11:00pm August 10, 2023 7:50am Start: 06-03-2021 End: 08-10-2023 take 1000 mg by mouth twice daily Cephalexin Discontinued 1000 MG PO Twice daily 25 09June 03, 2021 12:00am August 10, 2023 8:50am Start: 11-22-2018 End: 12-03-2018 take 1 capsule by mouth every twelve hours Cephalexin (Keflex) 500 mg capsule Discontinued 500 MG PO Q12H November 21, 2018 11:00pm December 03, 2018 6:22pm Start: 01-27-2017 End: 02-12-2017 take 1 capsule by mouth three times daily Cephalexin (Keflex) 500 mg capsule Discontinued 500 MG PO Three times daily 18 09January 27, 2017 12:00am February 12, 2017 5:25pm space evenly during waking hours take 1 capsule by mo [facility] every six hours Cephalexin 500 MG 1 capsule Orally Four times a day Active cetirizine hydrochloride 10 mg oral tablet (6 sources) Histamine-1 Receptor Antagonist Start: 12-17-2016 End: 02-07-2018 take 1 tablet by mouth once daily Cetirizine 10 mg Tablet Discontinued 10 MG PO Daily December 16, 2016 11:00pm February 07, 2018 5:59pm dicyclomine hydrochloride 20 mg oral tablet (6 sources) Anticholinergic Start: 01-27-2020 End: 10-08-2020 take 1 tablet by mouth four times daily Dicyclomine 20 mg tablet Discontinued 20 MG PO Four times daily January 27, 2020 12:00am October 08, 2020 9:43am diphenhydrAMINE hydrochloride 25 mg oral capsule (6 sources) Histamine-1 Receptor Antagonist Start: 12-17-2016 End: 02-07-2018 take 1 capsule by mouth once daily as needed Diphenhydramine Hcl (Benadryl) 25 mg Capsule Discontinued 25 MG PO Daily as needed for Allergy Symptoms December 16, 2016 11:00pm February 07, 2018 5:59pm docusate sodium 100 mg oral capsule (6 sources) Start: 06-06-2017 End: 02-07-2018 take 1 capsule by mouth once daily as needed for constipation Docusate Sodium (Colace) 100 mg capsule Discontinued 100 MG PO Daily as needed for constipation June 06, 2017 2:41pm February 07, 2018 5:59pm ergocalciferol 1.25 mg oral capsule (2 sources) Provitamin D2 Compound take 1 capsule by mouth every week Vitamin D (Ergocalciferol) 1.25 MG (66008 UT) TAKE 1 CAPSULE BY MOUTH WEEKLY for 30 Not-Taking escitalopram 10 mg oral tablet (6 sources) Serotonin Reuptake Inhibitor Start: 09-10-2017 End: 02-07-2018 take 1 tablet by mouth once daily Escitalopram Oxalate (Lexapro) 10 mg Tablet Discontinued 10 MG PO Daily September 09, 2017 11:00pm February 07, 2018 5:59pm famotidine 20 mg oral tablet (6 sources) Histamine-2 Receptor Antagonist Start: 06-06-2017 End: 06-16-2017 take 1 tablet by mouth twice daily Famotidine (Pepcid) 20 mg tablet Discontinued 20 MG PO Twice daily 18 12June 05, 2017 11:00pm June 14, 2017 11:00pm June 15, 2017 11:01pm nevaeh root 550 mg oral capsule (6 sources) Start: 12-17-2016 End: 02-07-2018 take 1 capsule by mouth once daily Nevaeh (Zingiber Officinalis) 550 mg Capsule Discontinued 550 MG PO Daily December 16, 2016 11:00pm February 07, 2018 5:59pm hydrOXYzine pamoate 50 mg oral capsule (6 sources) Antihistamine Start: 12-03-2018 End: 08-16-2019 take 1 capsule by mouth three times daily as needed for anxiety Hydroxyzine Pamoate 50 mg capsule Discontinued 50 MG PO Three times daily as needed for Anxiety December 02, 2018 11:00pm August 16, 2019 11:56am ibuprofen 600 mg oral tablet (18 sources) Nonsteroidal Anti-inflammatory Drug Start: 10-08-2020 End: 08-10-2023 take 4 tablets by mouth every twenty-four hours for pain Ibuprofen 600 mg Tablet Discontinued 600 MG PO Every 6 hours as needed for Pain October 07, 2020 11:00pm August 10, 2023 7:50am do not exceed 4 doses in a 24 hour period Start: 06-18-2019 End: 08-16-2019 take 1 tablet by mouth every six hours as needed for pain Ibuprofen 600 mg tablet Discontinued 600 MG PO Q6H as needed for pain June 17, 2019 11:00pm August 16, 2019 11:56am Start: 11-18-2016 End: 12-17-2016 take 1 tablet by mouth three times daily as needed for pain Ibuprofen 800 mg tablet Discontinued 800 MG PO Three times daily as needed for pain November 17, 2016 11:00pm December 17, 2016 11:10am ketorolac tromethamine 10 mg oral tablet (6 sources) Nonsteroidal Anti-inflammatory Drug, Cyclooxygenase Inhibitor Start: 09-10-2017 End: 02-07-2018 take 1 tablet by mouth every six hours as needed for pain Ketorolac 10 mg tablet Discontinued 10 MG PO Q6H as needed for pain September 09, 2017 11:00pm February 07, 2018 5:59pm lactobacillus acidophilus [id number] unt / pectin 10 mg oral capsule (6 sources) Start: 01-27-2017 End: 02-07-2018 take 1 capsule by mouth three times daily Acidophilus-Pectin , Graingers (Acidophilus Probiotic) 100 million cell-10 mg Capsule Discontinued 1 million cells/cm2 PO Three times daily January 27, 2017 12:00am February 07, 2018 5:59pm metaxalone 800 mg oral tablet (6 sources) Start: 02-25-2018 End: 11-22-2018 take 1 tablet by mouth three times daily as needed for pain Metaxalone (Skelaxin) 800 mg tablet Discontinued 800 MG PO Three times daily as needed for muscle pain February 25, 2018 12:00am November 22, 2018 4:25pm metroNIDAZOLE 500 mg oral tablet (6 sources) Nitroimidazole Antimicrobial Start: 01-27-2017 End: 02-12-2017 take 1 tablet by mouth three times daily Metronidazole (Flagyl) 500 mg Tablet Discontinued 500 MG PO Three times daily January 27, 2017 12:00am February 12, 2017 5:25pm mirtazapine 30 mg oral tablet (20 sources) Start: 12-03-2018 End: 08-10-2023 Mirtazapine (Remeron) 30 mg tablet Discontinued 45 MG PO Daily at bedtime December 03, 2018 7:00pm August 10, 2023 7:51am Start: 02-16-2018 End: 12-03-2018 take 1 tablet by mouth once daily at bedtime Mirtazapine 30 mg Tablet Discontinued 30 MG PO Daily at bedtime 14 February 16, 2018 12:00am December 03, 2018 7:00pm take 1 tablet by bhavna th once daily at bedtime Remeron 45 MG 1 tablet at bedtime Orally Once a day Not-Taking naproxen 500 mg oral tablet (12 sources) Nonsteroidal Anti-inflammatory Drug Start: 11-18-2019 End: 12-31-2019 take 1 tablet by mouth twice daily Naproxen (Naprosyn) 500 mg tablet Discontinued 500 MG PO Twice daily November 17, 2019 11:00pm December 31, 2019 1:20pm Start: 02-25-2018 End: 11-22-2018 take 1 tablet by mouth twice daily as needed for pain Naproxen 500 mg tablet Discontinued 500 MG PO Twice daily as needed for pain February 25, 2018 12:00am November 22, 2018 4:25pm administer with food or milk ondansetron 4 mg disintegrating oral tablet (20 sources) Serotonin-3 Receptor Antagonist Start: 06-03-2021 End: 08-10-2023 take 1 tablet by mouth every eight hours as needed for nausea and vomiting Ondansetron 4 mg tablet,disintegrating Discontinued 4 MG PO Q8H as needed for nausea and vomiting June 02, 2021 11:00pm August 10, 2023 7:51am Start: 01-27-2020 End: 10-08-2020 take 1 tablet by mouth three to four times daily as needed for nausea and vomiting Ondansetron 4 mg tablet,disintegrating Discontinued 4 MG PO 3 to 4 times per day as needed for nausea and vomiting January 27, 2020 12:00am October 08, 2020 9:43am Start: 12-31-2019 End: 08-10-2023 Ondansetron Hcl (Zofran) 4 m g tablet Discontinued 4 MG PO every 6 to 8 hours as needed for nausea and vomiting January 24, 2020 12:00am January 27, 2020 4:42pm Start: 06-18-2019 End: 08-16-2019 take 1 tablet by mouth every eight hours as needed for nausea and vomiting Ondansetron 8 mg tablet,disintegrating Discontinued 8 MG PO Q8H as needed for nausea and vomiting 7 June 17, 2019 11:00pm August 16, 2019 11:56am Start: 11-22-2018 End: 09-11-2019 take 1 tablet by mouth three times daily as needed for nausea Ondansetron Hcl (Zofran) 4 mg Tablet Discontinued 4 MG PO Three times daily as needed for Nausea November 21, 2018 11:00pm September 11, 2019 3:49pm Start: 02-12-2017 End: 02-08-2018 take 1 tablet by mouth every eight hours as needed for nausea and vomiting Ondansetron (Zofran Odt) 4 mg tablet,disintegrating Discontinued 4 MG PO Q8H as needed for nausea and vomiting 9 January 29, 2018 12:00am February 08, 2018 11:33am Start: 01-27-2017 End: 02-12-2017 take 1 tablet by mouth every six hours as needed for nausea and vomiting Ondansetron (Zofran Odt) 4 mg Tablet,Disintegrating Discontinued 4 MG PO Q6H as needed for Nausea And Vomiting January 27, 2017 12:00am February 12, 2017 5:26pm prazosin 1 mg oral capsule (6 sources) alpha-Adrenergic Melinda Start: 02-16-2018 End: 02-25-2018 take 1 capsule by mouth once daily at bedtime Prazosin 1 mg Capsule Discontinued 1 MG PO Daily at bedtime 14 February 16, 2018 12:00am February 25, 2018 5:18pm predniSONE 50 mg oral tablet (6 sources) Start: 01-24-2020 End: 01-27-2020 take 1 tablet by mouth once daily Prednisone 50 mg tablet Discontinued 50 MG PO Daily 5 5 January 24, 2020 12:00am January 27, 2020 4:43pm promethazine hydrochloride 25 mg oral tablet (6 sources) Phenothiazine Start: 10-06-2019 End: 10-08-2020 take 1 tablet by mouth three times daily as needed for nausea Promethazine 25 mg tablet Discontinued 25 MG PO Three times daily as needed for nausea October 05, 2019 11:00pm October 08, 2020 9:43am divalproex sodium 500 mg delayed release oral tablet (8 sources) Mood Stabilizer, Anti-epileptic Agent Start: 11-18-2016 End: 08-10-2023 take 1 tablet by mouth once daily Divalproex (Depakote) 500 mg Tablet,Delayed Release (Dr/Ec) Discontinued 500 MG PO Daily November 17, 2016 11:00pm August 10, 2023 7:50am take 1 tablet by mouth every twe lve hours Depakote 500 MG 1 tablet Orally twice a day for 30 days Active vancomycin 125 mg oral capsule (20 sources) Glycopeptide Antibacterial Start: 09-11-2019 End: 11-18-2019 take 1 capsule by mouth four times daily Vancomycin 125 mg capsule Discontinued 125 MG PO Four times daily 56 September 10, 2019 11:00pm November 18, 2019 9:31am Start: 02-07-2018 End: 02-09-2018 Vancomycin 125 mg Capsule Discontinued 125 MG PO Four times daily February 07, 2018 12:00am February 09, 2018 5:04pm Tapered vancomycin dose prescribed by Dr. Orozco 02/07/18 125mg QID x7 days, then TID x7 days, then BID x7 days, then QD x7 days Start: 01-07-2018 End: 01-21-2018 take 125 mg by mouth four times daily Vancomycin 125 mg/2.5 mL syringe Discontinued 125 MG PO Four times daily 140 January 07, 2018 12:00am January 20, 2018 12:00am January 21, 2018 12:02am Start: 02-12-2017 End: 03-31-2017 take 1 capsule by mouth every six hours Vancomycin 125 mg capsule Discontinued 125 MG PO Q6H 56 March 17, 2017 12:00am March 30, 2017 12:00am March 31, 2017 12:02am Problems Active Problems Problem Classification Problem Date Documented Da te Episodic/Chronic Abdominal pain (11 sources) Nonspecific abdominal pain; Translations: [Unspecified abdominal pain] Onset: 07-02-2022 06-18-2019 Episodic Anxiety disorders (20 sources) Anxiety; Translations: [Anxiety disorder, unspecified] Onset: 11-19-2015 10-08-2020 Chronic Bacterial infection; unspecified site (8 sources) Clostridial infection; Translations: [Clostridial infection] 06-06-2017 Episodic Chronic obstructive pulmonary disease and bronchiectasis (1 source) Bronchitis, not specified as acute or chronic Episodic Contraceptive and procreative management (1 source) Presence of (intrauterine) contraceptive device; Translations: [PRESENCE IU CONTRACEPT DEVICE] Onset: 07-03-2022 Episodic Disorders of teeth and jaw (3 sources) Dental caries; Translations: [Dental caries, unspecified] 10-06-2019 Episodic Epilepsy; convulsions (16 sources) Seizure; Translations: [Unspecified convulsions] Episodic Esophageal disorders (20 sources) Gastro-esophageal reflux disease with esophagitis; Translations: [Gastro-esophageal reflux disease with esophagitis] 08-12-2023 Chronic Essential hypertension (2 sources) Hypertensive disorder; Translations: [Essential (primary) hypertension] 02-07-2018 Chronic Fluid and electrolyte disorders (13 sources) Hypokalemia; Translations: [Mild dehydration] Onset: 06-12-2021 Resolved: 06-12-2021 Episodic Gastritis and duodenitis (16 sources) Chronic superficial gastritis; Translations: [Chronic superficial gastritis without bleeding] Chronic Headache; including migraine (16 sources) Cyclical vomiting syndrome; Translations: [Cyclical vomiting, in migraine, intractable] Chronic Intestinal infection (4 sources) Clostridium difficile diarrhea; Translations: [Enterocolitis due to Clostridium difficile, not specified as recurrent] 09-11-2019 Episodic Lymphadenitis (1 source) Localized enlarged lymph nodes Episodic Menstrual disorders (17 sources) Menorrhagia; Translations: [Excessive and frequent menstruation with regular cycle] Chronic Mood disorders (20 sources) Severe recurrent major depression without psychotic features; Translations: [Major depressive disorder, recurrent severe without psychotic features] Onset: 11-19-2015 02-07-2018 Chronic Nausea and vomiting (11 sources) Vomiting; Translations: [Vomiting, unspecified] 01-27-2020 Episodic Nonmalignant breast conditions (2 sources) Mammographic calcification of right breast; Translations: [Mammographic calcification found on diagnostic imaging of breast] 02-25-2023 Episodic Nonspecific chest pain (2 sources) Other chest pain; Translations: [Other chest pain] Onset: 04-02-2024 04-04-2024 Episodic Nutritional deficiencies (20 sources) Vitamin D deficiency; Translations: [Vitamin D deficiency, unspecified] Onset: 09-29-2021 Resolved: 09-29-2021 Chronic Other aftercare (2 sources) Encounter for therapeutic drug level monitoring Episodic Other bone disease and musculoskeletal deformities (6 sources) Osteitis; Translations: [Other specified disorders of cartilage, other site] 12-31-2019 Episodic Other connective tissue disease (20 sources) Fibromyalgia; Translations: [Fibromyalgia] 08-12-2023 Episodic Other connective tissue disease (3 sources) Fibromyalgia; Translations: [Myalgia and myositis, unspecified] Episodic Other diseases of bladder and urethra (16 sources) Spasm of bladder; Translations: [Other specified disorders of bladder] Chronic Other female genital disorders (1 source) Other specified abnormal uterine and vaginal bleeding; Translations: [OTH SPEC ABNORMAL UTERINE VAG BLEED] Onset: 07-03-2022 Chronic Other gastrointestinal disorders (16 sources) Irritable bowel syndrome with diarrhea; Translations: [Irritable bowel syndrome with diarrhea] Chronic Other gastrointestinal disorders (16 sources) Irritable bowel syndrome; Translations: [Mixed irritable bowel syndrome] Chronic Other gastrointestinal disorders (5 sources) Urgent desire for stool; Translations: [Fecal urgency] Episodic Other gastrointestinal disorders (4 sources) Diarrhea; Translations: [Diarrhea, unspecified] 11-22-2018 Episodic Other gastrointestinal disorders (2 sources) Altered bowel function; Translations: [Other specified symptoms and signs involving the digestive system and abdomen] 08-16-2019 Episodic Other injuries and conditions due to external causes (2 sources) Choking due to food in larynx; Translations: [Food in larynx causing asphyxiation, initial encounter] 07-16-2019 Episodic Other lower respiratory disease (1 source) Shortness of breath Episodic Other non-traumatic joint disorders (1 source) Pain in joints of right hand Episodic Other non-traumatic joint disorders (1 source) Pain in joints of left hand Episodic Other nutritional; endocrine; and metabolic disorders (2 sources) Hyperbilirubinemia; Translations: [Other disorders of bilirubin metabolism] 02-10-2018 Chronic Other nutritional; endocrine; and metabolic disorders (16 sources) Decrease in appetite; Translations: [Anorexia] Episodic Other screening for suspected conditions (not mental disorders or infectious disease) (2 sources) Computed tomography result abnormal; Translations: [Abnormal findings on diagnostic imaging of other specified body structures] 06-18-2019 Chronic Other screening for suspected conditions (not mental disorders or infectious disease) (7 sources) Decreased vitamin D; Translations: [Other specified abnormal findings of blood chemistry] Onset: 03-23-2023 02-10-2018 Episodic Other upper respiratory infections (2 sources) Sinusitis; Translations: [Chronic sinusitis, unspecified] 01-27-2020 Chronic Ovarian cyst (1 source) Other ovarian cyst, left side; Translations: [OTHER OVARIAN CYST LEFT SIDE] Onset: 07-03-2022 Episodic Residual codes; unclassified (1 source) Flushing Episodic Residual codes; unclassified (2 sources) High risk heterosexual behavior; Translations: [High-risk sexual behavior] Onset: 11-11-2023 11-11-2023 Episodic Spondylosis; intervertebral disc disorders; other back problems (4 sources) Torticollis; Translations: [Torticollis] 06-06-2017 Episodic Sprains and strains (2 sources) Sprain of ankle; Translations: [Sprain of unspecified ligament of unspecified ankle, initial encounter] 11-18-2019 Episodic Substance-related disorders (6 sources) Cannabis abuse; Translations: [Cannabis abuse, uncomplicated] 02-10-2018 Chronic Systemic lupus erythematosus and connective tissue disorders (8 sources) Lupus erythematosus; Translations: [Systemic lupus erythematosus, unspecified] 01-24-2020 Chronic Unclassified (1 source) Enterocolitis due to Clostridium difficile, not specified as recurrent; Translations: [Enterocolitis due to Clostridium difficile, not specified as recurrent] Onset: 04-08-2017 Unclassified (1 source) Medical Screening Onset: 04-02-2024 Unclassified (1 source) pressure on neck & head, stomach to back pain Onset: 04-02-2024 Viral infection (2 sources) Acute viral disease; Translations: [Viral infection, unspecified] 12-03-2018 Episodic Past or Other Problems Problem Classification Problem Date Documented Da te Episodic/Chronic Cardiac dysrhythmias (1 source) Palpitations Onset: 06-12-2021 Resolved: 06-12-2021 Episodic Genitourinary symptoms and ill-defined conditions (2 sources) Dysuria; Translations: [Dysuria R30.0] Onset: 12-12-2020 Resolved: 09-29-2021 Episodic Inflammatory diseases of female pelvic organs (1 source) Acute vaginitis; Translations: [Acute vaginitis N76.0] Onset: 12-12-2020 Resolved: 12-12-2020 Episodic Mood disorders (8 sources) Mood disorders Onset: 04-26-2017 04-26-2017 Other gastrointestinal disorders (2 sources) Diarrhea, unspecified; Translations: [Diarrhea, unspecified type R19.7] Onset: 12-12-2020 Resolved: 06-23-2021 Episodic Other infections; including parasitic (1 source) Personal history of other infectious and parasitic diseases; Translations: [Hx of Clostridium difficile infection Z86.19] Onset: 12-12-2020 Resolved: 12-12-2020 Episodic Other nutritional; endocrine; and metabolic disorders (1 source) Abnormal weight loss Onset: 06-12-2021 Resolved: 06-12-2021 Episodic Other nutritional; endocrine; and metabolic disorders (1 source) Anorexia Onset: 09-29-2021 Resolved: 09-29-2021 Episodic Other nutritional; endocrine; and metabolic disorders (1 source) Underweight Onset: 09-29-2021 Resolved: 09-29-2021 Episodic Other nutritional; endocrine; and metabolic disorders (1 source) Body mass index (BMI) 19.9 or less, adult Onset: 09-29-2021 Resolved: 09-29-2021 Episodic Urinary tract infections (7 sources) Acute cystitis with hematuria; Translations: [Urinary tract infectious disease] Onset: 06-12-2021 Resolved: 06-12-2021 Episodic Results Test Name Value Interpretation Reference Range Facility BASIC METABOLIC PANLon 04-02 Anion gap [Moles/Vol] 7 mmol/L Normal 5-15 [facility] Comment on above: Performed By: #### C BCA, BMP, 27903-2, 83549-3, 39605-9, THYR #### [facility] ([id number]) [address] [place] [address] 62724 Calcium [Mass/Vol] 8.9 mg/dL Normal 8.5-10.5 [facility] Comment on above: Performed By: #### C BCA, BMP, 11846-4, 61645-0, 16586-2, THYR #### [facility] ([id number]) [address] [place] [address] 71208 Chloride [Moles/Vol] 107 mmol/L Normal 98-109 [facility] Comment on above: Performed By: #### C BCA, BMP, 97845-7, 28844-0, 26260-8, THYR #### [facility] ([id number]) [address] [place] [address] 64733 CO2 [Moles/Vol] 23 mmol/L Normal 22-32 [facility] Comment on above: Performed By: #### C BCA, BMP, 05489-6, 21429-2, 56456-7, THYR #### [facility] ([id number]) [address] [place] [address] 96239 Creatinine [Mass/Vol] 0.85 mg/dL Normal 0.40-1.00 [facility] Comment on above: Result Comment: METH OD TRACEABLE TO IDMS STANDARD Performed By: #### C BCA, BMP, 61480-9, 43323-5, 80436-4, THYR #### [facility] ([id number]) [address] [place] [address] 87219 GFR/1.73 sq M.predicted among non-blacks MDRD (S/P/Bld) [Vol rate/Area] 85 mL/min/{1.73_m2} Normal >59 [facility] Comment on above: Result Comment: Reported eGFR is based on the CKD-EPI 2020 equation that does not use a race coefficient. Performed By: #### C BCA, BMP, 80918-6, 30560-6, 48343-6, THYR #### [facility] ([id number]) [address] [place] [address] 57163 Glucose [Mass/Vol] 112 mg/dL High 65-99 [facility] Comment on above: Performed By: #### C BCA, BMP, 37221-5, 34757-6, 81643-4, THYR #### [facility] ([id number]) [address] [place] [address] 02255 Potassium [Moles/Vol] 3.5 mmol/L Normal 3.5-5.0 [facility] Comment on above: Performed By: #### C BCA, BMP, 81945-5, 56227-8, 87185-4, THYR #### [facility] ([id number]) [address] [place] [address] 32635 Sodium [Moles/Vol] 137 mmol/L Normal 134-146 [facility] Comment on above: Performed By: #### C BCA, BMP, 49439-4, 08844-2, 66170-9, THYR #### [facility] ([id number]) [address] [place] [address] 77619 Urea nitrogen [Mass/Vol] 14 mg/dL Normal 5-23 [facility] Comment on above: Performed By: #### C BCA, BMP, 25904-8, 76113-6, 85634-2, THYR #### [facility] ([id number]) [address] [place] [address] 09854 CBC AND AUTO DIFFon 04-02-19 25 ABSOLUTE BASOPHIL 0.0 X10E9/L Normal 0.0-0.2 [facility] Comment on above: Performed By: #### C BCA, BMP, 66857-6, 86310-0, 16511-0, THYR #### [facility] ([id number]) [address] [place] [address] 82389 ABSOLUTE NEUTROPHIL 4.0 X10E9/L Normal 1.5-6.6 [facility] Comment on above: Performed By: #### C BCA, BMP, 62404-4, 01603-0, 38660-8, THYR #### [facility] ([id number]) [address] [place] [address] 03205 Basophils/100 WBC (Bld) 0.3 % Normal [facility] Comment on above: Performed By: #### C BCA, BMP, 85555-9, 95537-3, 76521-0, THYR #### [facility] ([id number]) [address] [place] [address] 85626 Eosinophils (Bld) [#/Vol] 0.1 10*3/uL Normal 0.0-0.4 [facility] Comment on above: Performed By: #### C BCA, BMP, 74098-4, 94619-1, 43684-1, THYR #### [facility] ([id number]) [address] [place] [address] 67153 Eosinophils/100 WBC (Bld) 0.9 % Normal [facility] Comment on above: Performed By: #### C BCA, BMP, 66454-4, 22381-9, 45131-3, THYR #### [facility] ([id number]) [address] [place] [address] 95982 Erythrocyte distribution width (RBC) [Ratio] 13.4 % Normal 11.5-15.0 [facility] Comment on above: Performed By: #### C BCA, BMP, 90560-2, 44263-0, 47579-0, THYR #### [facility] ([id number]) [address] [place] [address] 76180 Hematocrit (Bld) [Volume fraction] 38.6 % Normal 35-47 [facility] Comment on above: Performed By: #### C BCA, BMP, 06417-8, 02041-9, 15284-7, THYR #### [facility] ([id number]) [address] [place] [address] 61149 Hemoglobin (Bld) [Mass/Vol] 13.4 g/dL Normal 11.7-15.5 [facility] Comment on above: Performed By: #### C BCA, BMP, 91628-1, 33668-9, 92181-6, THYR #### [facility] ([id number]) [address] [place] [address] 82657 Lymphocytes (Bld) [#/Vol] 2.6 10*3/uL Normal 1.0-3.5 [facility] Comment on above: Performed By: #### C BCA, BMP, 78077-4, 57128-5, 21530-4, THYR #### [facility] ([id number]) [address] [place] [address] 20526 Lymphocytes/100 WBC (Bld) 36.5 % Normal [facility] Comment on above: Performed By: #### C BCA, BMP, 84709-4, 66647-7, 78481-2, THYR #### [facility] ([id number]) [address] [place] [address] 61828 MCH (RBC) [Entitic mass] 29.3 pg Normal 27-34 [facility] Comment on above: Performed By: #### C BCA, BMP, 05760-0, 49250-0, 05669-6, THYR #### [facility] ([id number]) [address] [place] [address] 15281 MCHC (RBC) [Mass/Vol] 34.7 g/dL Normal 32-36 [facility] Comment on above: Performed By: #### C BCA, BMP, 73898-9, 93531-5, 40194-2, THYR #### [facility] ([id number]) [address] [place] [address] 66123 MCV (RBC) [Entitic vol] 84 fL Normal 80-100 [facility] Comment on above: Performed By: #### C BCA, BMP, 26156-9, 65806-3, 79558-7, THYR #### [facility] ([id number]) [address] [place] [address] 54830 Monocytes (Bld) [#/Vol] 0.5 10*3/uL Normal 0-0.9 [facility] Comment on above: Performed By: #### C BCA, BMP, 48100-7, 68080-0, 02301-5, THYR #### [facility] ([id number]) [address] [place] [address] 92866 Monocytes/100 WBC (Bld) 7.1 % Normal [facility] Comment on above: Performed By: #### C BCA, BMP, 19416-3, 74583-0, 45643-7, THYR #### [facility] ([id number]) [address] [place] [address] 15583 Neutrophils/100 WBC (Bld) 55.2 % Normal [facility] Comment on above: Performed By: #### Johan BCA, BMP, 35697-1, 32231-1, 01939-3, THYR #### [facility] ([id number]) [address] [place] [address] 60522 Platelet mean volume (Bld) [Entitic vol] 7.3 fL Normal 7-12 [facility] Comment on above: Performed By: #### C BCA, BMP, 31811-7, 73809-0, 14121-5, THYR #### [facility] ([id number]) [address] [place] [address] 19206 Platelets (Bld) [#/Vol] 341 10*3/uL Normal 150-450 [facility] Comment on above: Performed By: #### C BCA, BMP, 86428-9, 51246-2, 29459-0, THYR #### [facility] ([id number]) [address] [place] [address] 71814 RBC COUNT 4.58 X10E12/L Normal 3.80-5.20 [facility] Comment on above: Performed By: #### C BCA, BMP, 05800-4, 56243-3, 80593-9, THYR #### [facility] ([id number]) [address] [place] [address] 40237 WBC (Bld) [#/Vol] 7.2 10*3/uL Normal 4.0-11.0 [facility] Comment on above: Performed By: #### C BCA, BMP, 42785-2, 52843-5, 30271-6, THYR #### [facility] ([id number]) [address] [place], [place] [address] CT BRAIN WO CONTon CT BRAIN WO CONT CT BRAIN WO CONT STUDY: CT BRAIN WO CONT INDICATION: Neuro deficit, acute, stroke suspected; LUE tingling x4 days. TECHNIQUE: * CT head was performed without intravenous contrast using the standard protocol. Automated exposure control was utilized. * All CT scans at this facility use dose modulation, iterative reconstruction, and/or weight based dosing when appropriate to reduce radiation dose to as low as reasonably achievable. FINDINGS: No evidence of acute intracranial hemorrhage, territorial infarct, mass effect, midline shift, or extra-axial fluid collection. Ventricles, sulci and cistern are unremarkable. Brain volume is age appropriate. Orbits and globes appear unremarkable. Soft tissues are unremarkable. Paranasal sinuses are broadly clear. Mastoid air cells are broadly clear. No evidence of aggressive osseous lesion. IMPRESSION: * No acute intracranial abnormality, by CT. MRI is more sensitive for evaluation of ischemia or subtle parenchymal abnormalities. Finalized by Daniel Hall on 04/02/2024 4:51 PM Normal [facility] Fibrin D-dimer DDU (PPP) [Ma ss/Vol]on 04-02-2024 D DIMER <150 Normal <255 [facility] Comment on above: Result Comment: Results <255 ng/mL DDU: The presence of a VTE can safely be excluded with a negative D-Dimer result and Wells score. A negative result doesn't exclude the possibility of DIC. The test be repeated along with other diagnostic tests if the patient's symptoms persist or worsen. [email or web address] Performed By: #### C BCA, BMP, 82157-9, 25913-1, 09388-4, THYR #### [facility] ([id number]) [address] [place] [address] 74865 MAGNESIUMon 04-02-2024 Magnesium [Mass/Vol] 2.2 mg/dL Normal 1.8-2.6 [facility] Comment on above: Performed By: #### C BCA, BMP, 89353-5, 53166-7, 52938-5, THYR #### [facility] ([id number]) [address] [place] [address] 82799 THYROID PROFILEon 04-02-2024 Free T4 [Mass/Vol] 0.88 ng/dL Normal 0.61-1.60 [facility] Comment on above: Performed By: #### C BCA, BMP, 11752-0, 05272-8, 52018-3, THYR #### [facility] ([id number]) [address] [place] [address] 15647 TSH 1.63 uIU/mL Normal 0.49-4.67 [facility] Comment on above: Performed By: #### C BCA, BMP, 52115-9, 95282-8, 65921-0, THYR #### [facility] ([id number]) [address] [place] [address] 98211 Troponin I.cardiac High sens itivity method [Mass/Vol]on 04-02-2024 1 HOUR TROP I, HIGH SENSITIVITY <2 Normal <16 [facility] Comment on above: Performed By: #### 8 9579-7 #### [facility] ([id number]) [address] [place] [address], [place] [address] TROPONIN I, HIGH SENSITIVITY <2 Normal <16 [facility] Comment on above: Performed By: #### C BCA, BMP, 27340-6, 14584-2, 96343-1, THYR #### [facility] ([id number]) [address] [place] [address], [place] [address] XR CHEST 2 VWSon 04-02-2024 XR CHEST 2 VWS XR CHEST 2 VWS PA and lateral chest: HISTORY: Chest pain. 2 views the chest are obtained. Cardiac and mediastinal contours are within normal limits. Lungs are clear. There is no vascular congestion, effusion, or pneumothorax. Osseous structures appear intact. IMPRESSION: No acute findings. Finalized by Rohan Ram MD on 04/02/2024 6:10 PM Normal [facility] Vaginitis Plus (VG+)on 11-10 Atopobium Vaginae Moderate - 1 Normal . [facility] Comment on above: Result Comment: This test was developed and its performance characteristics determined by [facility]. It has not been cleared or approved by the Food and Drug Administration. Performed By: #### V AGINITIS+ #### [facility] , BVAB2 Low - 0 Normal . [facility] Comment on above: Result Comment: This test was developed and its performance characteristics determined by [facility]. It has not been cleared or approved by the Food and Drug Administration. Performed By: #### V AGINITIS+ #### [facility] , Johnna Albicans, ANABELLE Negative Normal Negative [facility] Comment on above: Result Comment: This test was developed and its performance characteristics determined by [facility]. It has not been cleared or approved by the Food and Drug Administration. Performed By: #### V AGINITIS+ #### [facility] , Johnna Glabrata, ANABELLE Negative Normal Negative [facility] Comment on above: Result Comment: This test was developed and its performance characteristics determined by [facility]. It has not been cleared or approved by the Food and Drug Administration. PERFORMED BY: [facility] [address] [place] [address] PATHOLOGIST DOLLY DRIVER LUANA BALBUENA M.D. Performed By: #### V AGINITIS+ #### [facility] , Chlamydia Trachomotis, ANABELLE Positive Critically abnormal Negative [facility] Comment on above: Performed By: #### V AGINITIS+ #### [facility] , Megasphaera Low - 0 Normal . [facility] Comment on above: Result Comment: This test was developed and its performance characteristics determined by [facility]. It has not been cleared or approved by the Food and Drug Administration. Calculate total score by adding the 3 individual bacterial vaginosis (BV) marker scores together. Total score is interpreted as follows: Total score 0-1: Indicates the absence of BV. Total score 2: Indeterminate for BV. Additional clinical data should be evaluated to establish a diagnosis. Total score 3-6: Indicates the presence of BV. Performed By: #### V AGINITIS+ #### [facility] , Neisseria Gonorrhoeae, ANABELLE Negative Normal Negative [facility] Comment on above: Result Comment: Perf ormed at: =G - [facility] [address] [id number] Computer Education Teacher: Lucero Zapien MD, Phone: [phone] Performed By: #### V AGINITIS+ #### [facility] , Tric Vag ANABELLE Negative Normal Negative [facility] Comment on above: Performed By: #### V AGINITIS+ #### [facility] , Surgical Pathologyon 024 Surgical Pathology Normal [facility] Comment on above: Result Comment: [facility] [address] [place] [address] Surgical Pathology Consultation Patient Name:DO PARSON:1975 (Age: 47)Gender:FTaken:4Reported:4Physician(s):Brook Estrella M.D. ([phone])Copy To:Roe Gonzalez MD [facility] #:[id number]. Rec. #:[id number]: #[id number] Final Pathologic Diagnosis Right breast, stereotactic biopsy: Benign breast tissue showing proliferative fibrocystic changes, including sclerosing adenosis, apocrine metaplasia, columnar cell change and usual ductal hyperplasia, with focal microcalcifications. No evidence of malignancy or epithelial atypia in submitted biopsy material. Comment Immunohistochemical stains are performed with adequate controls, revealing that the intraductal proliferations are positive for E-cadherin and show mosaic or diffuse positive immunoreactivity with CK5/6, supporting a diagnosis of usual ductal hyperplasia with no evidence of intraductal malignancy or atypical hyperplasia. This case was reviewed by internal consultation with one other pathologist who agrees with the above interpretation. Report Electronically Signed Out ao/03/26/2023tj Callaway MD Interpret[place] [address], License number: [id number]. 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 Gross Description Received in formalin labeled DWIGHT right breast are three white-yellow fibrofatty needle core biopsy segments received with black ink, 1.7-2.4 cm. These are submitted in cassette A. Also received in the container are three white-yellow fibrofatty needle core biopsies segments, 2.5-3.0 cm. These are submitted in cassette B. (2, ns, [id number]) DM. Fixation Time: Tissue removed from patient: 0936 Time specimen placed in formalin: 0940 Cold ischemic time: 4 minutes Total fixation time: 9 hours The cassettes are radiographed to reveal no calcifications dm/03/23/2023EAK Specimen(s) Received Right breast Fee Codes(s): 1; 13400, 02483, 76415 Urinalysis - AUTOMATEDon Appearance (U) clear [employer] Other Bilirubin Ql (U) Negative [employer] Other Color (U) yellow [employer] Other Glucose Ql (U) Negative [employer] Other Hemoglobin Ql (U) trace [employer] Other Ketones Ql (U) Negative [employer] Other Leukocyte esterase Test strip Ql (U) Negative [employer] Other Nitrite Ql (U) Negative [employer] Other pH (U) 5.5 [pH] [employer] Other Protein Ql (U) Negative [employer] Other Specific gravity (U) [Rel density] 1.030 [employer] Other Urobilinogen (U) [Mass/Vol] 0.2 mg/dL [employer] Other Urinalysis - AUTOMATED [employer] Other Urine Cultureon 12-17-2022 Bacteria identified Cx Nom (U) Reason for Exam Acute cystitis with hematuria Urine <9,000 colonies/ml mixed bacterial skin contaminants 2 Days PERFORMED BY: [place] [address] PATHOLOGIST DOLLY DRIVER LUANA BALBUENA M.D. Normal [facility] Comment on above: Performed By: #### C UU #### [address] Basic Metabolic Panelon 2 Calcium [Mass/Vol] 9.6664931 mg/dL Normal 8.6-10 .3 mg/dL [employer] Other Chloride [Moles/Vol] 106 mmol/L Normal 98-107 mmol/L [employer] Other CO2 [Moles/Vol] 21.82219445 mmol/L Normal 21.0-3 1.0 mmol/L [employer] Other Creatinine [Mass/Vol] 0.85811036 mg/dL Normal 0.60-1.20 mg/dL [employer] Other GFR/1.73 sq M.predicted MDRD (S/P/Bld) [Vol rate/Area] mL/min/{1.73_m2} [employer] Other Glucose [Mass/Vol] 93 mg/dL Normal 70-100 mg/dL [employer] Other Potassium [Moles/Vol] 4.95478034 mmol/L Normal 3.5-5.1 mmol/L [employer] Other Sodium [Moles/Vol] 135 mmol/L Low 136-145 mmol/L [employer] Other Urea nitrogen [Mass/Vol] 10 mg/dL Normal 7-25 mg/dL [employer] Other US PELVIS TRANSVAGon 023 US PELVIS TRANSVAG EXAMINATION: US PELV IS TRANSVAG HISTORY: Insertion of intrauterine contraceptive device COMPARISON: No relevant comparison available. FINDINGS: The uterus is normal in size, contour and echotexture measuring 9.6 x 5.7 x 4.4 cm. Anteverted. No focal myometrial mass. The endometrium measures 4.9 mm, normal. Linear hyperechogenicity within the endometrial cavity with acoustic shadowing consistent with a normally positioned IUD The right ovary is normal in appearance measuring 2.7 x 1.5 1.5 cm. Normal color and Doppler flow. The left ovary is normal in appearance measuring 3.1 x 2.4 x 2.4 cm. Normal color and Doppler flow. Complex cystic area measuring 1.3 x 1.2 x 1.2 cm Multiple dilated vessels identified left parametrium IMPRESSION: Complex 1.3 cm left ovarian cyst Normally positioned IUD Dilated left parametrial vessels, consider pelvic vascular congestion Electronically authenticated by: FRANCHESCA ADKINS Date: 2022-07-02 13:35 Normal [facility] Urinalysis - AUTOMATEDon Appearance (U) clear [employer] Other Bilirubin Ql (U) Negative [employer] Other Color (U) dark yellow [employer] Other Glucose Ql (U) Negative [employer] Other Hemoglobin Ql (U) MODRATE [employer] Other Ketones Ql (U) Negative [employer] Other Leukocyte esterase Test strip Ql (U) Negative [employer] Other Nitrite Ql (U) Negative [employer] Other pH (U) 5.5 [pH] [employer] Other Protein Ql (U) NEGATIV [employer] Other Specific gravity (U) [Rel density] 1.030 [employer] Other Urobilinogen (U) [Mass/Vol] 0.2 mg/dL [facility] Other Urinalysis - AUTOMATED [facility] Other Urine culture routineOrdered By: William Lemus on 10-01-2021 Bacteria identified Cx Nom (U) 2 Days [facility] No Panel InformationOrdered By: William Lemus on 09-29-2021 25-Hydroxy Vitamin D Total 42.6 ng/mL 30-100 [facility] Comment on above: VITAMIN D STATUS 25( [place])VITAMIN D RANGE (ng/mL) Deficient <20 Insufficient 20 to <30 Sufficient 30 to 100 Reference: Robb MF,Merlyn MAR, Gregoria MARTINEZ, et al. Evaluation,treatment, and prevention of vitamin D deficiency; an Endocrine Society clinical practice guideline. JCEM. 2010; 96(7):1911-30. Urinalysis - AUTOMATEDon Appearance (U) [employer] Other Bilirubin Ql (U) Negative [employer] Other Color (U) [facility] Other Glucose Ql (U) Negative [employer] Other Hemoglobin Ql (U) SMALL [employer] Other Ketones Ql (U) 15MG [employer] Other Leukocyte esterase Test strip Ql (U) Negative [facility] Other Nitrite Ql (U) Negative [employer] Other pH (U) 5.5 [pH] [facility] Other Protein Ql (U) Negative [employer] Other Specific gravity (U) [Rel density] >=1.030 [facility] Other Urobilinogen (U) [Mass/Vol] 0.2 mg/dL [facility] Other Urinalysis - AUTOMATED [facility] Other Urine Cultureon 09-29-2021 Bacteria identified Cx Nom (U) [facility] Other Vitamin D 25 Hydroxy Totalon 09-29-2021 Vitamin D 25 Hydroxy Total 42.6 ng/mL Normal 30-100 ng/mL [facility] Other Clostridium Difficileon 05-31 Clostridium Difficile [facility] Other Urinalysis - AUTOMATEDon Appearance (U) cloudy [employer] Other Bilirubin Ql (U) Negative [employer] Other Color (U) dark yellow [facility] Other Glucose Ql (U) Negative [employer] Other Hemoglobin Ql (U) trace [employer] Other Ketones Ql (U) 15 mg [employer] Other Leukocyte esterase Test strip Ql (U) Negative [facility] Other Nitrite Ql (U) Negative [employer] Other pH (U) 5.5 [pH] [facility] Other Protein Ql (U) Negative [employer] Other Specific gravity (U) [Rel density] >=1.030 [facility] Other Urobilinogen (U) [Mass/Vol] 0.2 mg/dL [facility] Other Urinalysis - AUTOMATED [facility] Other Urinalysis - AUTOMATED Appearance (U) CLEAR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 [id number] patient doing better still tearful at times significant other is in room with patient they are aware of plan of care patient is happy that she is going to see crisis counselor today boyfriend is not happy with this he states today was his only day off and he doesn't want to be here for several hours waiting on crisis evaluation. Still feels overwhelmed.[id number] counselor is now here for patient discussed withkayy in [id number] patient has been seen and evaluated by the crisis counselor. Patient is not suicidal or homicidal A she is doing better now that she has had a chance to discuss her anxiety and feeling overwhelmed. Patient is calmer they feel patient can be discharged home to follow-up with her own psych provider. She will call for an appointment tomorrow patient also has crisis resources that are being given to her'[id number] discussed with patient and significant other ,feeling better ,appreciative of care , states this is the most helpful visit I have hadImpression and PlanDiagnosisAnxiety, panic attackPlanCondition: Improved.Disposition: Discharged: Time 12/09/17 17:46:00, to home.Patient was given the following educational materials: Panic Attack.Follow up with: ; Marshall Guaman Within 3 to 5 days Follow-up with primary care provider of your choice or Dr. Guaman is on for patient's who do not have doctors. Follow-up with your counselor tomorrow. Return if any concerns or worsening. Take medication as directed. You have information given to you by the crisis team please feel free to use those numbers if he needs assistance..Counseled: Patient, Friend, Regarding diagnosis, Regarding diagnostic results, Regarding treatment plan, Regarding prescription.[Electronically Signed on: 12/09/2017 18:10 EDT] Delisa Green MD[Verified on: 12/09/2017 18:10 EDT] Delisa Green MD [facility] ED Note-Nursingon 12-09-2017 ED Note-Nursing [id number] [facility] ED Note-Nursing Pyschiatric evaluati on is being done. Mental health is at bedside now speaking with patient. [facility] ED Patient Education Noteon 12-09-2017 ED Patient Education Note Education MaterialsMental and Behavioral HealthPanic AttacksPanic attacks are sudden, short-lived?surges of severe anxiety, fear, or discomfort. They may occur for no reason when you are relaxed, when you are anxious, or when you are sleeping. Panic attacks may occur for a number of reasons:? Healthy people occasionally have panic attacks in extreme, life-threatening situations, such as war or natural disasters. Normal anxiety is a protective mechanism of the body that helps us react to danger (fight or flight response).? Panic attacks are often seen with anxiety disorders, such as panic disorder, social anxiety disorder, generalized anxiety disorder, and phobias. Anxiety disorders cause excessive or uncontrollable anxiety. They may interfere with your relationships or other life activities.? Panic attacks are sometimes seen with other mental illnesses, such as depression and posttraumatic stress disorder.? Certain medical conditions, prescription medicines, and drugs of abuse can cause panic attacks.What are the signs or symptoms?Panic attacks start suddenly, peak within 20 minutes, and are accompanied by four or more of the following symptoms:? Pounding heart or fast heart rate (palpitations).? Sweating.? Trembling or shaking.? Shortness of breath or feeling smothered.? Feeling choked.? Chest pain or discomfort.? Nausea or strange feeling in your stomach.? Dizziness, light-headedness, or feeling like you will faint.? Chills or hot flushes.? Numbness or tingling in your lips or hands and feet.? Feeling that things are not real or feeling that you are not yourself.? Fear of losing control or going crazy.? Fear of dying.Some of these symptoms can mimic serious medical conditions. For example, you may think you are having a heart attack. Although panic attacks can be very scary, they are not life threatening.How is this diagnosed?Panic attacks are diagnosed through an assessment by your health care provider. Your health care provider will ask questions about your symptoms, such as where and when they occurred. Your health care provider will also ask about your medical history and use of alcohol and drugs, including prescription medicines. Your health care provider may order blood tests or other studies to rule out a serious medical condition. Your health care provider may refer you to a mental health professional for further evaluation.How is this treated?? Most healthy people who have one or two panic attacks in an extreme, life-threatening situation will not require treatment.? The treatment for panic attacks associated with anxiety disorders or other mental illness typically involves counseling with a mental health professional, medicine, or a combination of both. Your health care provider will help determine what treatment is best for you.? Panic attacks due to physical illness usually go away with treatment of the illness. If prescription medicine is causing panic attacks, talk with your health care provider about stopping the medicine, decreasing the dose, or substituting another medicine.? Panic attacks due to alcohol or drug abuse go away with abstinence. Some adults need professional help in order to stop drinking or using drugs.Follow these instructions at home:? Take all medicines as directed by your health care provider.? Schedule and attend follow-up visits as directed by your health care provider. It is important to keep all your appointments.Contact a health care provider if:? You are not able to take your medicines as prescribed.? Your symptoms do not improve or get worse.Get help right away if:? You experience panic attack symptoms that are different than your usual symptoms.? You have serious thoughts about hurting yourself or others.? You are taking medicine for panic attacks and have a serious side effect.This information is not intended to replace advice given to you by your health care provider. Make sure you discuss any questions you have with your health care provider.Document Released: 02/15/2006 Document Revised: 07/23/2016 Document Reviewed: 09/29/2013[employer] Interactive Patient Education ? 2017 [employer] Normal [facility] ED Patient Summaryon 12-09- 018 ED Patient Summary [facility] - Emergency [address] [place] [address] pATIENT DISCHARGE INSTRUCTIONSPatient InformationName: DO PARSON Age: 42 YearsDate of : [birth year]MRN: [id number] For Visit: Anxiety; ANXIETYArrival Time: 12/09/17 14:32:00[facility]: [facility]: Provider, NoneAttending Physician: Delisa Green MDComment:Visit Diagnosis:Diagnoses This Visit Anxiety ([id number])If you received any narcotics, sedation, or any other medication that causes drowsiness for the next 24 hours, unless otherwise directed:? Do not drive a car.? Do not operate machinery such as power tools, lawn mowers, drills, sewing machines, or stoves? Avoid alcoholic beverages and drugs for allergies, nerves, or sleep? Do not make important personal or business decisions or sign any legal documentsWith: Address: When:Marshall Guaman [address] [address] Business (1) Within 3 to 5 daysComments:Follow-up with primary care provider of your choice or Dr. Guaman is on for patient's who do not have doctors. Follow-up with your counselor tomorrow. Return if any concerns or worsening. Take medication as directed. You have information given to you by the crisis team please feel free to use those numbers if he needs assistance.Medication Information:The exam and treatment you received today in the [facility] Emergency Department were for an urgent problem and are not intended as complete care. It is important for you to follow up with a doctor, nurse practitioner, or physician?s kennel assistant for ongoing care. If your symptoms become worse or you do not improve as expected and you are unable to reach your usual health care provider, you should return to the Emergency Department, we are available 24 hours a day.For those patients who have received Radiology results, the interpretation of your X-ray as given to you by our Emergency Department physician is only a preliminary report. The Radiologist will review your films and if there is a change in the diagnosis you will be notified by phone. Please make sure you have provided a working phone number so we can reach you if necessary.In the event that you had a lab culture while you were a patient in the Emergency Department, you will be notified by phone if there is a need to change your antibiotic. Please make sure you have provided a working phone number so we can reach you if necessary.[facility] Emergency Department has provided you with a complete list of medications post discharge. Please inform your flame burner/provider of your visit and for further instruction on these medications. Any specific questions regarding your chronic medications and dosages should be discussed with your primary care physician(s) and/or pharmacist. Medications to Continue That Have Not ChangedOther MedicationsALPRAZolam (Xanax) Oral 3 times a day.clonazePAM (KlonoPIN) Oral 3 times a day.Visit InformationAllergies:Substan ce Reaction Symptoms Type Commentsiodine Drugprochlorperazine DrugVital Signs: Vitals and Measurements this Visit (last charted value for your 12/09/2017 visit) Vital Signs This Visit Temperature Oral: 37 DegC Apical Heart Rate: 58 bpm Peripheral Pulse Rate: 55 bpm Respiratory Rate: 18 br/min Systolic Blood Pressure: 94 mmHg Diastolic Blood Pressure: 67 mmHg SpO2: 99 % Oxygen Therapy: Room air Measurements This Visit Height/Length Dosin.000 cm Height/Length Estimated: 160.000 cm Weight Dosin.000 kg Weight Estimated: 48.000 kgProblems List:Problem Onset CommentsArsenic poisoningLupusMercury poisoningPanic attackPatient EducationPanic AttacksPanic attacks are sudden, short-lived?surges of severe anxiety, fear, or discomfort. They may occur for no reason when you are relaxed, when you are anxious, or when you are sleeping. Panic attacks may occur for a number of reasons:? Healthy people occasionally have panic attacks in extreme, life-threatening situations, such as war or natural disasters. Normal anxiety is a protective mechanism of the body that helps us react to danger (fight or flight response).? Panic attacks are often seen with anxiety disorders, such as panic disorder, social anxiety disorder, generalized anxiety disorder, and phobias. Anxiety disorders cause excessive or uncontrollable anxiety. They may interfere with your relationships or other life activities.? Panic attacks are sometimes seen with other mental illnesses, such as depression and posttraumatic stress disorder.? Certain medical conditions, prescription medicines, and drugs of abuse can cause panic attacks.What are the signs or symptoms?Panic attacks start suddenly, peak within 20 minutes, and are accompanied by four or more of the following symptoms:? Pounding heart or fast heart rate (palpitations).? Sweating.? Trembling or shaking.? Shortness of breath or feeling smothered.? Feeling choked.? Chest pain or discomfort.? Nausea or strange feeling in your stomach.? Dizziness, light-headedness, or feeling like you will faint.? Chills or hot flushes.? Numbness or tingling in your lips or hands and feet.? Feeling that things are not real or feeling that you are not yourself.? Fear of losing control or going crazy.? Fear of dying.Some of these symptoms can mimic serious medical conditions. For example, you may think you are having a heart attack. Although panic attacks can be very scary, they are not life threatening.How is this diagnosed?Panic attacks are diagnosed through an assessment by your health care provider. Your health care provider will ask questions about your symptoms, such as where and when they occurred. Your health care provider will also ask about your medical history and use of alcohol and drugs, including prescription medicines. Your health care provider may order blood tests or other studies to rule out a serious medical condition. Your health care provider may refer you to a mental health professional for further evaluation.How is this treated?? Most healthy people who have one or two panic attacks in an extreme, life-threatening situation will not require treatment.? The treatment for panic attacks associated with anxiety disorders or other mental illness typically involves counseling with a mental health professional, medicine, or a combination of both. Your health care provider will help determine what treatment is best for you.? Panic attacks due to physical illness usually go away with treatment of the illness. If prescription medicine is causing panic attacks, talk with your health care provider about stopping the medicine, decreasing the dose, or substituting another medicine.? Panic attacks due to alcohol or drug abuse go away with abstinence. Some adults need professional help in order to stop drinking or using drugs.Follow these instructions at home:? Take all medicines as directed by your health care provider.? Schedule and attend follow-up visits as directed by your health care provider. It is important to keep all your appointments.Contact a health care provider if:? You are not able to take your medicines as prescribed.? Your symptoms do not improve or get worse.Get help right away if:? You experience panic attack symptoms that are different than your usual symptoms.? You have serious thoughts about hurting yourself or others.? You are taking medicine for panic attacks and have a serious side effect.This information is not intended to replace advice given to you by your health care provider. Make sure you discuss any questions you have with your health care provider.Document Released: 02/15/2006 Document Revised: 07/23/2016 Document Reviewed: 09/29/2013Kianna Interactive Patient Education ? 2017 [employer]. Viruses or BacteriaWhat?s got you sick?Antibiotics only treat bacterial infections. Viral illnesses cannot be treated with antibiotics. When an antibiotic is not prescribed, ask your healthcare professional for tips on how to relieve symptoms and feel better. Usual CauseIllnessVirusesBacteria Antibiotic NeededCold/Runny Nose NOBronchitis/Chest Cold (in otherwise healthy children and adults) NOWhooping Cough YesFlu NOStrep Throat YesSore Throat (except strep) NOFluid in the middle ear (otitis media with effusion) NOUrinary Tract Infection YesAntibiotics Aren?t Always the Answerwww.cdc.gov/getsmart GET SMART Know When Antibiotics Kvng.[place]. Department of Health and Human ServicesCenters for Disease Control and Prevention October 2013 [facility] Ethanol.on 12-09-2017 Ethanol Level <5.0 Normal 0.0-5.0 [facility] Comment on above: Performed By: #### 2 [id number] ####[facility] (DEFAULT)[address] [place] [address] 20902 Test Serum 1on Preg Serum Internal Control OK [facility] Comment on above: Performed By: #### 1 [id number] ####[facility] (DEFAULT)[address] [place] [address] 50188 Test Serum Qual Negative [facility] Comment on above: Performed By: #### 1 [id number], [id number], [id number] ####[facility] (DEFAULT)[address] [place] [address] Salicylateon 12-09-2017 Salicylate Lvl <4.0 Normal 0.0-30.0 [facility] Comment on above: Result Comment: Sali cylate ranges less than 30 mg/dL are considered to be therapeutic. Levels greater than 30 mg/dL are considered toxic and levels greater than 60 mg/dL may be lethal. Performed By: #### 1 [id number], [id number], [id number], [id number] ####[facility] (DEFAULT)[address] [place] [address] 47712 Triage Panel 1212-09-2017 Protein mass conc Negative [facility] Comment on above: Performed By: #### 2 [id number] ####[facility] (DEFAULT)[address] [place] [address] 23274 Triage Internal Control Pass [facility] Comment on above: Performed By: #### 2 [id number] ####[facility] (DEFAULT)[address] [place] [address] 15245 U Amph Scr Negative [facility] Comment on above: Performed By: #### 2 [id number] ####[facility] (DEFAULT)[address] [place] [address] 52920 U Afua Scr Negative [facility] Comment on above: Performed By: #### 2 [id number] ####[facility] (DEFAULT)[address] [place] [address] 69465 U Benzodia Scr Negative [facility] Comment on above: Performed By: #### 2 [id number] ####[facility] (DEFAULT)[address] [place] [address] 86816 U Cannab Scrn Positive [facility] Comment on above: Performed By: #### 2 [id number] ####[facility] (DEFAULT)[address] [place] [address] 11970 U Cocaine Scr Negative [facility] Comment on above: Performed By: #### 2 [id number] ####[facility] (DEFAULT)[address] [place] [address] 03234 U Methadone Scr Negative [facility] Comment on above: Performed By: #### 2 [id number] ####[facility] (DEFAULT)[address] [place] [address] 88183 U Methamp Scrn Negative [facility] Comment on above: Performed By: #### 2 [id number] ####[facility] (DEFAULT)[address] [place] [address] U Opiate Scr Negative [facility] Comment on above: Performed By: #### 2 [id number] ####[facility] (DEFAULT)[address] [place] [address] U Oxycod Scr Negative [facility] Comment on above: Performed By: #### 2 [id number] ####[facility] (DEFAULT)[address] [place] [address] U Phencyclidine Scr Negative [facility] Comment on above: Performed By: #### 2 [id number] ####[facility] (DEFAULT)[address] [place] [address] U Tricyclic Antidepress Scr Negative [facility] Comment on above: Performed By: #### 2 [id number] ####[facility] (DEFAULT)[address] [place] [address] Urine Source Clean Catch [facility] Comment on above: Performed By: #### 2 [id number] ####[facility] (DEFAULT)[address] [place] [address] Troponin Ion 12-09-2017 Troponin I.cardiac mass conc ng/mL Normal <=0.03 [facility] Comment on above: Performed By: #### 1 [id number], [id number], [id number], [id number] ####[facility] (DEFAULT)[address] [place] [address] 62432 UA Xckml8xf 12-09-2017 RBC Test strip #/vol (U) None Seen [facility] Comment on above: Order Comment: Urina lysis Microscopic order added on by [employer] Expert Rules system. Performed By: #### 2 [id number] ####[facility] (DEFAULT)[address] [place] [address] 25590 UA Bacteria None [facility] Comment on above: Order Comment: Urina lysis Microscopic order added on by [employer] Expert Rules system. Performed By: #### 2 [id number] ####[facility] [facility] (DEFAULT)[address] [place] [address] [id number] UA Mucous Trace Normal [facility] Comment on above: Order Comment: Urina lysis Microscopic order added on by [employer] Expert Rules system. Performed By: #### 2 [id number] ####[facility] (DEFAULT)[address] [place] [address] 36070 UA Squam Epi Few [facility] Comment on above: Order Comment: Urina lysis Microscopic order added on by [employer] Rules system. Performed By: #### 2 [id number] ####[facility] (DEFAULT)[address] [place] [address] [id number] UA WBC 0-2 [facility] Comment on above: Order Comment: Urina lysis Microscopic order added on by [employer] Expert Rules system. Performed By: #### 2 [id number] ####[facility] (DEFAULT)[address] [place] [address] 95324 UA w Culture if Ind Standard on 12-09-2017 Breakpoint UA [facility] Comment on above: Performed By: #### 2 [id number] ####[facility] (DEFAULT)[address] [place] [address] 75244 Color Nom (U) STRAW Invalid Interpretation Code [facility] Comment on above: Performed By: #### 2 [id number] ####[facility] (DEFAULT)[address] [place] [address] 33731 Culture? Not Indicated Invalid Interpretation Code [facility] Comment on above: Performed By: #### 2 [id number] ####[facility] (DEFAULT)[address] [place] [address] 04148 Glucose mass conc (U) Negative Invalid Interpretation Code [facility] Comment on above: Performed By: #### 2 [id number] ####[facility] (DEFAULT)[address] [place] [address] 31465 Ketones Ql (U) Negative Invalid Interpretation Code [facility] Comment on above: Performed By: #### 2 [id number] ####[facility] (DEFAULT)[address] [place] [address] 98738 Micro? Indicated Invalid Interpretation Code [facility] Comment on above: Performed By: #### 2 [id number] ####[facility] (DEFAULT)[address] [place] [address] 41695 UA Bilirubin Negative Normal [facility] Comment on above: Performed By: #### 2 [id number] ####[facility] (DEFAULT)[address] [place] [address] 56302 UA Blood TRACE Abnormal NEGATIVE [facility] Comment on above: Performed By: #### 2 [id number] ####[facility] (DEFAULT)[address] [place] [address] 08743 UA Clarity CLEAR Normal CLEAR [facility] Comment on above: Performed By: #### 2 [id number] ####[facility] (DEFAULT)[address] [place] [address] 90388 UA Leuk Est Negative Normal NEGATIVE [facility] Comment on above: Performed By: #### 2 [id number] ####[facility] (DEFAULT)[address] [place] [address] 26145 UA Nitrite Negative Normal NEGATIVE [facility] Comment on above: Performed By: #### 2 [id number] ####[facility] (DEFAULT)[address] [place] [address] 48443 UA pH 6.0 Invalid Interpretation Code 5-8 [facility] Comment on above: Performed By: #### 2 [id number] ####[facility] (DEFAULT)[address] [place] [address] 08179 UA Protein Negative Normal NEGATIVE [facility] Comment on above: Performed By: #### 2 [id number] ####[facility] (DEFAULT)[address] [place] [address] 67984 UA Spec Grav <=1.005 Invalid Interpretation Code 1.001-1.[address] [place] [address] Comment on above: Performed By: #### 2 [id number] ####[facility] (DEFAULT)[address] [place] [address] 54188 UA Urobilinogen 0.2 mg/dL Normal 0.2-1.0 [facility] Comment on above: Performed By: #### 2 [id number] ####[facility] (DEFAULT)[address] [place] [address] 38552 C difficile PCRon 04-08-2017 C difficile PCR Negative Normal [facility] Comment on above: Performed By: #### C DPCR ####[facility] [address] [place], [place] [id number] CBC and Differentialon 04-08 Abs Baso <0.03 Normal <0.11 [facility] Abs [place] 0.55 k/uL Normal <0.87 [facility] Abs Neut 6.21 k/uL Normal 1.45-7.50 [facility] Basophils/100 WBC Auto (Bld) 0.2 % Normal [facility] DTYPE Auto Diff Normal [facility] Eosinophils 10*3/uL Normal <0.46 [facility] Eosinophils/100 leukocytes 0.0 % Normal [facility] Erythrocyte distribution width Auto Ratio (RBC) 11.9 % Normal 11.5-15.0 [facility] Erythrocytes (RBC) 5.41 10*6/uL High 3.90-5.20 [facility] Erythrocytes (RBC) 10*6/uL Normal <0.01 [facility] ospital Erythrocytes (RBC) 0.0 /100 WBC Normal 0 [facility] Hematocrit (HCT) 46.1 % High 36.0-46.0 [facility] pital Hemoglobin mass conc (Bld) 16.3 g/dL High 11.5-15.5 [facility] Lymphocytes 2.48 10*3/uL [facility].00[facility]4.00 [facility]100 leukocytes 26.8 % Normal [facility] MCH 30.1 pG Normal 26.0-34.0 [facility] MCHC mass conc (RBC) 35.4 g/dL Normal 30.5-36.0 [facility] MCV 85.2 fL Normal 80.0-100.0 [facility] Monocytes/100 leukocytes 5.9 % Normal [facility] Neutrophils/100 WBC Auto (Bld) 67.1 % Normal [facility] Platelet mean volume (PMV) 9.9 fL Normal 9.0-12.7 [facility] Platelets 283 10*3/uL Normal 150-400 [facility] WBC (Leukocytes) 9.26 10*3/uL Normal 3.70-11.00 [facility] ospital Comp Metabolic Panelon 04-08 Alanine aminotransferase (ALT) 9 U/L Normal 7-38 [facility] Albumin 5.3 g/dL High 3.9-4.9 [facility] Alkaline phosphatase (ALP) 50 U/L Normal 32-117 [facility] Anion gap 14 mmol/L Normal 9-18 [facility] Aspartate aminotransferase (AST) 16 U/L Normal 13-35 [facility] Bilirubin (total) 0.7 mg/dL Normal 0.2-1.3 [facility] Calcium 9.8 mg/dL Normal 8.6-10.0 [facility] Chloride 98 mmol/L Normal 97-105 [facility] CO2 24 mmol/L Normal 22-30 [facility] Creatinine 0.72 mg/dL Normal 0.58-0.96 [facility] eGFR (non-black) mL/min/{1.73_m2} Normal [facility] Comment on above: Result Comment: eGFR (Estimated GFR) Units of measure: mL/min/1.73 meters squaredeGFR is derived from the reexpressed MDRD Study equation using the following parameters: serum creatinine, age, gender and race. The creatinine assay has been calibrated to be traceable to IDMS.An eGFR <60 mL/min/1.73m2 for >3 months is consistent with chronic kidney disease. Refer to KDOQI guidelines for clinical interpretation.In patients with unstable renal function, e.g. those with acute kidney injury, the eGFR may not accurately reflect actual GFR. Glucose mass conc 91 mg/dL Normal 74-99 [facility] Comment on above: Result Comment: The [place] Diabetes Association (ADA) provides guidance for cutoff values for fasting glucose and random glucose. The ADA defines fasting as no caloric intake for at least 8 hours. Fasting plasma glucose results between 100 to 125 mg/dL indicate increased risk for diabetes (prediabetes).Fasting plasma glucose results greater than or equal to 126 mg/dL meet the criteria for diagnosis of diabetes. In the absence of unequivocal hyperglycemia, results should be confirmed by repeat testing. In a patient with classic symptoms of hyperglycemia or hyperglycemic crisis, random plasma glucose results greater than or equal to 200 mg/dL meet the criteria for diagnosis of diabetes.Reference: Standards of Medical Care in Diabetes 2016, [place] Diabetes Association. Diabetes Care. 2016.39(Suppl 1). Potassium molar conc 3.7 mmol/L Normal 3.7-5.1 [facility] Protein 9.4 g/dL High 6.3-8.0 [facility] Sodium 136 mmol/L Normal 136-144 [facility] Urea nitrogen 11 mg/dL Normal 7-21 [facility] ED NOTEon 04-08-2017 ED NOTE HNO ID: [id number] thor: Meagan (Rn) Dianelys, RNService: NursingAuthor Type: Registered NurseType: ED NotesFiled: 04/08/2017 8:35 PMNote Text:The pt was discharged in stable condition to home. The pt verbalized thatthey understand the discharge instructions. Normal [facility] ED NOTE HNO ID: [id number] thor: Meagan (Rn) Dianelys, RNService: NursingAuthor Type: Registered NurseType: ED NotesFiled: 04/08/2017 4:56 PMNote Text:Pt presents with SOB, diarrhea. Nausea and vomiting. Pt states she hashad c-dif 4 times since November and cannot seem to get rid of it. The ptis tearful and states she has anxiety. The pt is alert and oriented.Waiting for provider evaluation. Normal [facility] ED NOTE HNO ID: [id number] thor: Tate (Medic) Rodneyervice: (none)Author Type: Agent Broker and TechnicianType: ED NotesFiled: 04/08/2017 3:49 PMNote Text:Pt to ED with multiple complaints. Pt states she was dx with c diff inOctober and has been feeling lousy since. For the past 5 days pt statesshe has been experiencing the following symptoms - frequent urination,dysuria, nausea/vomiting, mid lower abdominal pain, diarrhea, weakness,depression, chest pain, SOB, not eating, diaphoretic, Normal [facility] ED PROV NOTEon 04-08-2017 ED PROV NOTE HNO ID: [id number] thor: Zena Mitchellrvice: (none)Author Type: PhysicianType: ED Provider NotesFiled: 04/08/2017 8:31 PMNote Text:ED Provider NotePatient Name: Do BrewerPengRN: [id number] DATE: 04/08/17HistoryPatient presents with:Abdominal PainNausea AND VomitingChest Pain: x 1 weekMultiple ConcernsHPI Comments: patient presents with multiple symptoms including shortnessof breath, nausea, vomiting and diarrhea with a history of C. difficile.She was seen by clinic clinic GI for the first time recently. She calledthem today and was sent to the ED for evaluation. Patient has generalizedintermittent cramping abdominal pain. She has epigastric pain withradiation into her chest. She admits to anxiety. She says she feelslousy and weak. She has a multitude of other symptoms including frequenturination subjective dysuria. She says she is not eating and has beenclammy.History provided by: PatientLanguage paintings conservator used: NoPAST MEDICAL HISTORYDiagnosis Date- Arsenic poisoning per patient report- Chest pain- Mercury poisoning- Panic attack- Seizures (HCC)No past surgical history on file.FAMILY HISTORYProblem Relation Age of Onset- Cancer Maternal Grandmother lung- Cancer Father lung and brain- Heart Mother- Stroke Mother 2- Heart Paternal Uncle 2 open heart, other uncle heart attackSocial HistorySocial History Main Topics- Smoking status: Former Smoker Types: Cigarettes- Smokeless tobacco: Never Used Comment: only on occassions- Alcohol use Yes Comment: special occassions- Drug use: Yes Special: Marijuana Comment: every other day for pain purposes- Sexual activity: Yes Partners: MaleALLERGIESAllergen Reactions- Bentyl [Dicyclomine* Anaphylaxis- Compazine [Prochlor* Mental Status Change Anxiety, rash- Iodine Other: See Comments Sob, rash anxietyReview of SystemsConstitutional: Positive for appetite change, chills, diaphoresis andfatigue. Negative for fever.HENT: Negative for congestion.Respiratory: Negative for cough and shortness of breath.Cardiovascular: Positive for chest pain.Gastrointestinal: Positive for abdominal pain, diarrhea, nausea andvomiting.Genitourinary: Positive for dysuria. Negative for flank pain andhematuria.Musculoskeletal : Negative for arthralgias, back pain, myalgias and neckpain.Skin: Negative for rash.Neurological: Negative for weakness, numbness and headaches.Psychiatric/Behavi oral: Positive for dysphoric mood. The patient isnervous/anxious.All other systems reviewed and are negative.Physical ExamBP 119/80 Pulse 61 Temp (Src) 97.8 (Oral) Resp 16 Ht 5' 4 (1.63m) Wt 105 lb (47.6kg) SpO2 99% LMP 04/07/2017 BMI 18.01 kg/(m2).Physical ExamConstitutional: She is oriented to person, place, and time. She appearswell-developed and well-nourished. No distress.HENT:Head: Normocephalic and atraumatic.Nose: Nose normal.Mouth/Throat: Oropharynx is clear and moist. No oropharyngeal exudate.Eyes: Conjunctivae are normal. Right eye exhibits no discharge. Left eyeexhibits no discharge. No scleral icterus.Neck: No JVD present.Cardiovascular: Normal rate, regular rhythm and intact distal pulses.No murmur heard.Pulmonary/Chest: Effort normal. No respiratory distress. She has nowheezes. She has no rales. She exhibits tenderness.Abdominal: Soft. Bowel sounds are normal. She exhibits no distension andno mass. There is no tenderness. There is no rebound and no guarding.Musculoskeletal: She exhibits no edema or tenderness.Neurological: She is alert and oriented to person, place, and time.Skin: Skin is warm and dry. No rash noted. She is not diaphoretic.Psychiatric: Her behavior is normal. Judgment and thought content normal.anxious yet not distressed.Nursing note and vitals reviewed.Diagnostic TestingED Labs Ordered and ReviewedCOMPREHENSIVE METABOLIC PANEL (AK,AV,EU,FV,HL,YAJAIRA,MM,SP) - Abnormal;Notable for the following: Result Value Ref Range Protein, Total 9.4 (*) 6.3 - 8.0 g/dL Albumin 5.3 (*) 3.9 - 4.9 g/dL All other components within normal limitsCBC + AUTO DIFF (AK,AV,EU,FV,HL,YAJAIRA,MM,SP) - Abnormal; Notable for thefollowing: RBC 5.41 (*) 3.90 - 5.20 m/uL Hemoglobin 16.3 (*) 11.5 - 15.5 g/dL Hematocrit 46.1 (*) 36.0 - 46.0 % All other components within normal limitsUA DIP, URINE (POC) - Abnormal; Notable for the following: BILIRUBIN UA (POCT) Small (*) Neg KETONE UA (POCT) 80 (*) Neg mg/dL HEMOGLOBIN/BLOOD UA (POCT) Moderate (*) Neg PROTEIN UA (POCT) 30 (*) Neg mg/dL All other components within normal limits Narrative: Meter ID: [id number] URINE - ED(POC) - NormalLIPASE BLOOD (AK,AV,EU,FV,HL,YAJAIRA,MM,SP)Pro ceduresMedical Decision Making / ED CourseED Coursepatient presents for multitude of symptoms. Her exam is benign except fora clinical anxiety. Patient arrived at 3:40pm and right now it is 5:56pmand she has had no diarrhea. She is already on vancomycin for C.difficile. She looks well and does not look toxic or dehydrated. She isnot clinically distressed.Her chemistries are all normal. Her protein andalbumin are actually both a little high. This could be hyperconcentration he had she does not look chemically dehydrated by the othernumbers. Similar here HANDH are elevated and may beconcentrated fromdehydration but her electrolytes appear stable as is renal function.Urine does not look infected. but her urine looks concentrated which couldbe from some dehydration. Patient ordered some IV fluids. lipase isnormal. Clinically this is not an acute surgical process. Clinically Idon't think this is acute cardiac or pulmonary issue. I think a lot ofher symptoms are from anxiety.I don't think she needs to be admitted atthis time. She is already on vancomycin. I did ask her to give us astool sample for C. difficile testing. Patient has not been able to giveus a sample in the last 2 hours and 20 minutes.8:25 PM: Patient was given IV fluids. She did have one loose stool thatwas somewhat yellow in color and somewhat seeing light. Could be C.difficile the patient we know has C. difficile. Her exam is benign andshe is feeling much better after IV fluids. Patient is here with rosalino who is verbally abusive and confrontational. He insisted thatthe patient's mental health program manager Dr. Richardson was in the emergencydepartment herself but did not come and see the patient. This is actuallynot true. I did speak with the mental health program manager. clinically patientstable. She has a nonsurgical abdomen. I don't think his toxic megacolonor need for CAT scan or x-ray. She is comfortable with the patient'sdischarge to home. patient stable with no vomiting in the ED. Clinicallyappropriate for discharge and outpatient management. She will continuevancomycin and follow-up with gastroenterology an outpatient basis.Patient is offered to return if any acute concerns or worsening but stableat discharge. Patient actually says she is feeling better and says she iscomfortable with this plan and disposition.Encounter Diagnosis ICD-10-CM1. C. difficile diarrhea A04.72PlanThe Patient was DISCHARGED: Counseled patient and significant otherregarding lab results AND suspected diagnosis AND need for follow-up.Discharged home with verbal and written instructions. They wereinstructed to return as needed for persistent or worsening symptoms or anynew concerns.Condition at time of disposition: improved and stableSIGNATURE: Patito Serrano, DO04/08/172030 Normal [facility] Lipaseon 04-08-2017 Lipase 23 U/L Normal [facility] Vital Signs Date Time Vital Sign Value Performing Clinician Facility 04-04-2024 14:56-0500 Body height 160.02 cm [facility] 04-04-2024 14:56-0500 Body mass index (BMI) [Ratio] 19.8 kg/m2 [facility] 04-04-2024 14:56-0500 Body weight 50.8 kg [facility] 04-04-2024 14:56-0500 Diastolic blood pressure 70 mm[Hg] [facility] 04-04-2024 14:56-0500 Heart rate 72 /min [facility] 04-04-2024 14:56-0500 SaO2% (BldA) [Mass fraction] 99 % [facility] 04-04-2024 14:56-0500 Systolic blood pressure 120 mm[Hg] [facility] 11-11-2023 14:02-0400 Body height 160.02 cm [facility] 11-11-2023 14:02-0400 Body mass index (BMI) [Ratio] 21.9 kg/m2 [facility] 11-11-2023 14:02-0400 Body temperature 99 [degF] [facility] 11-11-2023 14:02-0400 Body weight 56.24 kg [facility] 11-11-2023 14:02-0400 Diastolic blood pressure 57 mm[Hg] [facility] 11-11-2023 14:02-0400 Heart rate 60 /min [facility] 11-11-2023 14:02-0400 SaO2% (BldA) [Mass fraction] 99 % [facility] 11-11-2023 14:02-0400 Systolic blood pressure 98 mm[Hg] [facility] 08-12-2023 11:37-0400 Body height 162.56 cm [facility] 08-12-2023 11:37-0400 Body mass index (BMI) [Ratio] 20.7 kg/m2 [facility] 08-12-2023 11:37-0400 Body weight 54.91 kg [facility] 08-12-2023 11:37-0400 Diastolic blood pressure 70 mm[Hg] [facility] 08-12-2023 11:37-0400 Heart rate 62 /min [facility] 08-12-2023 11:37-0400 SaO2% (BldA) [Mass fraction] 100 % [facility] 08-12-2023 11:37-0400 Systolic blood pressure 100 mm[Hg] [facility] 12-17-2022 13:00-0400 Body height 162.56 cm William Lemus Other [facility] [employer] Other 12-17-2022 13:00-0400 Body mass index (BMI) [Ratio] 19.57 kg/m2 William Lemus Other [facility] [employer] Other 12-17-2022 13:00-0400 Body temperature 99 [degF] William Lemus Other [employer] [facility] [employer] Other 12-17-2022 13:00-0400 Body weight 51.71 kg William Lemus Other [employer] Other 12-17-2022 13:00-0400 Diastolic blood pressure 80 mm[Hg] William Lemus Other [facility] Other 12-17-2022 13:00-0400 SaO2% (BldA) [Mass fraction] 97 % William Lemus Other [facility] Other 12-17-2022 13:00-0400 Systolic blood pressure 116 mm[Hg] William Lemus Other [facility] Other 08-24-2022 09:30-0400 Body height 162.56 cm William Lemus Other [facility] Other 08-24-2022 09:30-0400 Body mass index (BMI) [Ratio] 18.88 kg/m2 William Lemus Other [facility] Other 08-24-2022 09:30-0400 Body temperature 98.6 [degF] William Lemus Other [facility] Other 08-24-2022 09:30-0400 Body weight 49.9 kg William Lemus Other [facility] Other 08-24-2022 09:30-0400 Diastolic blood pressure 78 mm[Hg] William Lemus Other [facility] Other 08-24-2022 09:30-0400 Respiratory rate 18 /min William Lemus Other [facility] Other 08-24-2022 09:30-0400 SaO2% (BldA) [Mass fraction] 99 % William Lemus Other [facility] Other 08-24-2022 09:30-0400 Systolic blood pressure 136 mm[Hg] William Lemus Other [facility] Other 07-26-2022 09:00-0400 Body height 162.56 cm Judy Johnson Other [facility] Other 07-26-2022 09:00-0400 Body mass index (BMI) [Ratio] 18.81 kg/m2 Judy Johnson Other [facility] Other 07-26-2022 09:00-0400 Body temperature 98.2 [degF] Judy Johnson Other [facility] Other 07-26-2022 09:00-0400 Body weight 49.71 kg Judy Johnson Other [facility] Other 07-26-2022 09:00-0400 Respiratory rate 18 /min Judy Johnson Other [facility] Other 07-26-2022 09:00-0400 SaO2% (BldA) [Mass fraction] 98 % Judy Johnson Other [facility] Other 06-25-2022 15:45-0400 Body height 162.56 cm William Lemus Other [facility] Other 06-25-2022 15:45-0400 Body mass index (BMI) [Ratio] 19.57 kg/m2 William Lemus Other [facility] Other 06-25-2022 15:45-0400 Body temperature 98.5 [degF] William Lemus Other [facility] Other 06-25-2022 15:45-0400 Body weight 51.71 kg William Lemus Other [facility] Other 06-25-2022 15:45-0400 Diastolic blood pressure 68 mm[Hg] William Lemus Other [facility] Other 06-25-2022 15:45-0400 SaO2% (BldA) [Mass fraction] 98 % Williamrobe Lemus Other [facility] Other 06-25-2022 15:45-0400 Systolic blood pressure 102 mm[Hg] William Lemus Other [facility] Other 12-15-2021 15:00-0400 Body height 162.56 cm William Allan Other [facility] Other 12-15-2021 15:00-0400 Body mass index (BMI) [Ratio] 19.6 kg/m2 William Allan Other [facility] Other 12-15-2021 15:00-0400 Body weight 51.8 kg William Allan Other [facility] Other 12-15-2021 15:00-0400 Diastolic blood pressure 72 mm[Hg] William Lemus Other [facility] Other 12-15-2021 15:00-0400 Respiratory rate 16 /min William Lemus Other [facility] Other 12-15-2021 15:00-0400 SaO2% (BldA) [Mass fraction] 98 % William Lemus Other [facility] Other 12-15-2021 15:00-0400 Systolic blood pressure 98 mm[Hg] William Allan Other [facility] Other 09-29-2021 17:15-0400 Body height 162.56 cm William Allan Other [facility] Other 09-29-2021 17:15-0400 Body mass index (BMI) [Ratio] 17.97 kg/m2 William Allan Other [facility] Other 09-29-2021 17:15-0400 Body weight 47.49 kg William Allan Other [facility] Other 09-29-2021 17:15-0400 Diastolic blood pressure 60 mm[Hg] William Lemus Other [facility] Other 09-29-2021 17:15-0400 Respiratory rate 16 /min William Lovemer Other [facility] Other 09-29-2021 17:15-0400 SaO2% (BldA) [Mass fraction] 97 % William Allan Other [facility] Other 09-29-2021 17:15-0400 Systolic blood pressure 126 mm[Hg] William Lemus Other [facility] Other 06-23-2021 15:15-0400 Body height 162.56 cm Spencer Orozco Other [facility] Other 06-23-2021 15:15-0400 Body mass index (BMI) [Ratio] 18.19 kg/m2 Spencer Orozco Other [facility] Other 06-23-2021 15:15-0400 Body temperature 98 [degF] Spencer Orozco Other [facility] Other 06-23-2021 15:15-0400 Body weight 48.08 kg Spencer Orozco Other [facility] Other 06-23-2021 15:15-0400 Diastolic blood pressure 79 mm[Hg] Spencer Orozco Other [facility] Other 06-23-2021 15:15-0400 Systolic blood pressure 124 mm[Hg] Spencer Orozco Other [facility] Other 06-12-2021 14:45-0400 Body height 162.56 cm William Lemus Other [facility] Other 06-12-2021 14:45-0400 Body mass index (BMI) [Ratio] 18.14 kg/m2 William Lemus Other [facility] Other 06-12-2021 14:45-0400 Body weight 47.95 kg William Lemus Other [facility] Other 06-12-2021 14:45-0400 Diastolic blood pressure 92 mm[Hg] William Lemus Other [facility] Other 06-12-2021 14:45-0400 Respiratory rate 16 /min William Lemus Other [facility] Other 06-12-2021 14:45-0400 SaO2% (BldA) [Mass fraction] 99 % William Lemus Other [facility] Other 06-12-2021 14:45-0400 Systolic blood pressure 142 mm[Hg] William Lemus Other [facility] Other 12-12-2020 10:45-0400 Body height 162.56 cm William Lemus Other [facility] Other 12-12-2020 10:45-0400 Body mass index (BMI) [Ratio] 19.57 kg/m2 William Lemus Other [facility] Other 12-12-2020 10:45-0400 Body temperature 97.7 [degF] William Lemus Other [facility] Other 12-12-2020 10:45-0400 Body weight 51.71 kg William Lemus Other [facility] Other 12-12-2020 10:45-0400 Diastolic blood pressure 62 mm[Hg] William Lemus Other [facility] Other 12-12-2020 10:45-0400 Respiratory rate 16 /min William Lemus Other [facility] Other 12-12-2020 10:45-0400 SaO2% (BldA) [Mass fraction] 98 % William Lemus Other [facility] Other 12-12-2020 10:45-0400 Systolic blood pressure 116 mm[Hg] William Lemus Other [facility] Other Encounters Encounter Date Encounter Type Care Provider Facility Start: 04-04-2024 End: 04-04-2024 ambulatory [facility] Work Phone: Start: 04-04-2024 End: 04-04-2024 Patient encounter procedure [facility] Phys[facility] Work Phone: Start: 04-02-2024 End: 04-02-2024 Emergency department patient visit WILLIAM LEMUS [facility] Start: 11-11-2023 End: 11-11-2023 Departed Referred INTERIOR SPECIALIST Gissel Lee Work Phone: [facility] [place] Work Phone: Start: 11-11-2023 End: 11-11-2023 ambulatory Gissel Lee [facility] Work Phone: Start: 11-11-2023 End: 11-11-2023 Patient encounter procedure [facility] Phys[facility] [place] Work Phone: Start: 08-12-2023 End: 08-12-2023 ambulatory [facility] Work Phone: Start: 08-12-2023 End: 08-12-2023 Patient encounter procedure [facility] Physician [facility] [place] Work Phone: Start: 04-28-2023 Orders Only Debora escobar [facility] Comment on above: Breast calcification , right (Primary Dx) Start: 03-26-2023 Telephone encounter Sneha Castorena RN [facility] Start: 03-23-2023 Documentation procedure Edson Mittal RN [facility] Start: 03-23-2023 End: 03-24-2023 ambulatory ROE Beckford [facility] Start: 03-10-2023 End: 03-11-2023 ambulatory WILLIAM LEMUS [facility] Start: 03-04-2023 Orders Only Debora Elaine LPN [facility] Comment on above: Abnormal mammogram ( Primary Dx) Abnormal mammogram o f right breast (Primary Dx) Start: 03-03-2023 Telephone encounter Debora Aguiar [facility] Start: 02-25-2023 [facility]phone [facility] Comment on above: Calcification of rig ht breast on mammography (Primary Dx) Start: 12-21-2022 End: 12-21-2022 ambulatory William Lemus Other [facility] Other Start: 12-21-2022 Telephone encounter [facility] [place] Start: 12-17-2022 Office outpatient vi sit 15 minutes William Lemus [facility] Start: 12-17-2022 End: 12-17-2022 ambulatory DO William Lemus Work Phone: [facility] Work Phone: Start: 12-17-2022 End: 12-17-2022 Departed Referred DO William Lemus Work Phone: [facility] Work Phone: Start: 12-15-2022 End: 12-15-2022 ambulatory Gissel Lee Other [facility] Other Start: 12-15-2022 Patient encounter procedure Gissel Lee [facility] [place] Start: 08-24-2022 End: 08-24-2022 ambulatory William Lemus Other [facility] Other Start: 08-24-2022 Office outpatient vi sit 15 minutes William Lemus [facility] [place] Start: 07-26-2022 End: 07-26-2022 ambulatory Judy Johnson Other [facility] Other Start: 07-26-2022 Office outpatient vi sit 15 minutes Judy Johnson [facility] [place] Start: 07-26-2022 Telephone encounter Judy Johnson [facility] [place] Start: 07-02-2022 End: 07-02-[address] BRENDA MONZON Facility:[facility] Start: 07-02-2022 Telephone encounter [facility] Guz[facility] [place] Start: 06-25-2022 End: 06-25-2022 ambulatory William Lemus Other [facility] Other Start: 06-25-2022 Office outpatient vi sit 25 minutes William Lemus [facility] [place] Start: 01-12-2022 End: 01-12-2022 ambulatory William Lemus Other [facility] Other Start: 01-12-2022 Telephone encounter [facility] Guz[facility] [place] Start: 12-18-2021 End: 12-18-2021 ambulatory William Lemus Other [facility] Other Start: 12-18-2021 Telephone encounter William Guz[facility] [place] Start: 12-15-2021 End: 12-15-2021 ambulatory William Lemus Other [facility] Other Start: 12-15-2021 Encounter for genera l adult medical examination without abnormal findings William Lemus [facility] [place] Start: 12-15-2021 Periodic preventive med est patient 40-64yrs William Lemus [facility] [place] Start: 09-30-2021 End: 09-30-2021 ambulatory William Lemus Other [facility] Other Start: 09-30-2021 Telephone encounter William Guzman [facility] [place] Start: 09-29-2021 End: 09-29-2021 Patient encounter procedure DO William Lemus Work Phone: [facility] Start: 09-29-2021 End: 09-29-2021 ambulatory William Lemus Other [facility] Other Start: 09-29-2021 Office outpatient vi sit 25 minutes William Lemus [facility] [place] Start: 06-23-2021 End: 06-23-2021 ambulatory Spencer Orozco Other [facility] Other Start: 06-23-2021 Office outpatient vi sit 25 minutes Spencer Orozco [facility] Start: 06-12-2021 End: 06-12-2021 ambulatory William Lemus Other [facility] Other Start: 06-12-2021 Office outpatient vi sit 15 minutes William Lemus [facility] [place] Start: 12-12-2020 Office outpatient vi sit 15 minutes William Lemus [facility] [place] Start: 12-09-2017 End: 12-10-2017 Emergency department patient visit [facility] Facility:[facility] Start: 04-08-2017 End: 04-08-2017 Emergency department patient visit [facility] Procedures Date Procedure Procedure Detail Performing Clinician Urine culture DO William patel Work Phone: Plan of Treatment Date Care Activity Detail Author Start: 01-14-2026 DTaP,Tdap and Td Vaccines (2 - Td or Tdap) DTaP,Tdap and Td Vaccines (2 - Td or Tdap) [facility] Start: 03-23-2024 Adult BMI Screening Adult BMI Screen ing [facility] Start: 02-10-2024 Adult BMI Screening [facility] Start: 12-09-2023 Tobacco Screening [facility]ening [facility] Start: 11-11-2023 [facility] Start: 04-28-2023 End: 04-28-2024 MG Breast duct - right Views W contrast intra duct Mammography diagnostic unilateral right with CAD Imaging Routine Breast calcification, right Expected: 04/28/2023, Expires: 04/28/2024 [employer] Work Phone: Comment on above: Expected: 04/28/2023 , Expires: 04/28/2024 Start: 03-16-2023 End: 03-16-2023 Patient encounter procedure 03/16/2023 9:45 AM EST Office Visit [facility] [address] [place] [address] Brook Estrella MD [address] [place], [place] [id number] [facility] Start: 03-04-2023 End: 03-04-2024 MG stereo Guidance for additional biopsy of Breast - right Mammography biopsy breast stereotactic guidance each additional right Imaging Routine Abnormal mammogram Expected: 03/04/2023, Expires: 03/04/2024 [facility] Work Phone: Comment on above: Expected: 03/04/2023 , Expires: 03/04/2024 Start: 03-04-2023 End: 03-04-2024 MG stereo Guidance for biopsy of Breast - right Mammography biopsy breast stereotactic guidance initial right Imaging Routine Abnormal mammogram of right breast Expected: 03/04/2023, Expires: 03/04/2024 [facility] Work Phone: Comment on above: Expected: 03/04/2023 , Expires: 03/04/2024 Start: 02-25-2023 End: 02-26-2024 MG stereo Guidance for biopsy of Breast - right Mammography biopsy breast stereotactic guidance initial right Imaging Routine Calcification of right breast on mammography Expected: 02/25/2023, Expires: 02/26/2024 [facility] Work Phone: Comment on above: Expected: 02/25/2023 , Expires: 02/26/2024 Start: 12-17-2022 Bacteria identified in Urine by Culture [facility] Start: 10-30-2022 Influenza vaccination Influenza Vacc ine [facility] Start: 1997 Screening for malign ant neoplasm of cervix Pap Smear [facility] Start: 1988 Depression Screening Depression Scre [facility] Atopobium vaginae DN A [Presence] in Vaginal fluid by ANABELLE with probe detection [facility] Bacterial vaginosis associated bacterium 2 DNA [Presence] in Vaginal fluid by ANABELLE with probe detection [facility] Comprehensive metabo lic 1999 panel - Serum or Plasma [facility] Megasphaera sp type 1 DNA [Presence] in Vaginal fluid by ANABELLE with probe detection [facility] Payers Date Payer Category Payer Self-pay [id number] 2022 Unknown [id number] 2020 Unknown [id number] 2017 Medicare [id number] 2017 Self-pay ABC 2017 [place] [id number] 2017-Present [phone] [address] [place] [address] [id number] 2017 Medicaid [id number] 1976 Unknown [id number] 1976 Unknown [id number] 1976 Unknown [id number] 1976 Unknown [id number] 1976 Unknown [id number] 1976 Unknown [id number] Medicare Nora MCR PFFS [id number] Unknown [id number] Unknown [id number] Social History Date Type Detail Facility Unknown if ever smoked [facility] Other Start: 04-11-2020 End: 12-08-2022 Sex Assigned At [facility] Other Start: 06-02-2021 Tobacco smoking status IDIS Never smoked tobacco (finding) [facility] Start: 1975 Sex Assigned At Female [facility] Start: 06-17-2022 End: 11-11-2023 Tobacco smoking status IDIS Ex-smoker [facility] History of tobacco use Current smoker [facility] Start: 06-17-2022 Tobacco use and exposure Smokeless tobacco non-user [facility] Start: 02-09-2023 Alcohol intake 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 (finding) [facility] Start: 04-11-2020 End: 12-08-2022 History of Social function [facility] PHQ-2 Score [facility] Start: 1975 Sex Assigned At Not on file [facility] Start: 04-04-2024 Sex Female (finding) [facility] Clinical Notes 12-12-2020 to 03-26-2023 Telephone Encounter - Sneha Castorena RN - 03/26/2023 4:20 PM ESTTelephone Encounter - Sneha Castorena RN - 03/26/2023 4:20 PM Emelina Shaw RN - 03/23/2023 10:21 AM EST Note Date & Type Note Facility 03-26-2023 Miscellaneous Notes Summary: Post-biopsy assessment Call placed to patient to check status following recent breast biopsy. Patient reports lots of bruising, but soreness is improving @ biopsy site. Reviewed biopsy results with patient and follow-up imaging recommendations provided by radiologist. She was encouraged to contact the [facility] Center if she develops any new problems at biopsy site. Voices understanding. documented in this encounter [facility] 03-26-2023 Telephone encount er Note Summary: Post-biopsy assessment Call placed to patient to check status following recent breast biopsy. Patient reports lots of bruising, but soreness is improving @ biopsy site. Reviewed biopsy results with patient and follow-up imaging recommendations provided by radiologist. She was encouraged to contact the Breast Center if she develops any new problems at biopsy site. Voices understanding. [facility] 03-23-2023 History of Presen t illness Narrative Met with patient following breast biopsy to review post-biopsy care instructions. Reviewed written instructions and answered related questions. Encouraged to call if any concerns related to biopsy site/breast should occur. Provided contact numbers and office hours. Written copy of care instructions provided to patient. Voices understanding of all information reviewed. documented in this encounter [facility] 03-03-2023 Miscellaneous Notes Formattin g of this note might be different from the original. Called Pt, Pt states she was told to call [facility] to schedule BX at [phone] Rowe's office. Pt attempted to call to schedule and ws told that she would get a call back due to no order. The order was placed on 02-25. I called the [facility] scheduling number and LM for them to call back to get Pt scheduled. I called Pt back and she is aware. documented in this encounter [facility] 03-03-2023 Telephone encount er Note Called Pt, Pt states she was told to call [facility] to schedule BX at [phone] Rowe's office. Pt attempted to call to schedule and ws told that she would get a call back due to no order. The order was placed on 02-25. I called the [facility] scheduling number and LM for them to call back to get Pt scheduled. I called Pt back and she is aware. [facility] 02-25-2023 History of Presen t illness Narrative Ordered per Radiology documented in this encounter [facility] 02-25-2023 Miscellaneous Notes Formattin g of this note might be different from the original. Called and spoke to pt and reviewed estrogen labs with her. Per Mary Agarwal CNM labs are WNL documented in this encounter [facility] 02-25-2023 Telephone encount er Note Called and spoke to pt and reviewed estrogen labs with her. Per Mary Agarwal CNM labs are WNL [facility] 12-17-2022 Evaluation note Encounter Date Diagnosis Assessment Notes Nov, Acute cystitis with hematuria (ICD-10 - N30.01) Will recheck UA with culture to make sure the UTI is completely cleared up and will obtain the labs and imaging from [place] to review it. Will call with lab results and if anything further needs to be done from the ER. Urine only shows trace blood we will get a urine culture and contact her with results. No presumptive treatment with antibiotics at this time. [facility] Other 06-26-2023 Evaluation note* Encounter Date Diagnosis Assessment Notes Treatment Notes Treatment Clinical Notes Jul, Dental infection (ICD-10 - K04.7) Encouraged to see a dentist Jul, Inguinal lymphadenopathy (ICD-10 - R59.0) This is a known issue for the patient and general surgery had recommended she follow-up with [facility]. 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 She has not addressed this issue with her current gas pit worker and I recommended she do so since they would be the one to surgically remove it anyway per general surgery's recommendation. She agrees to this and will talk with him about it. Jul, Hypokalemia (ICD-10 - E87.6) Patient had hypokalemia in the ER and we will recheck her potassium now. She states they did give her medicine to repleted but never rechecked it. Jul, Shortness of breath (ICD-10 - R06.02) Patient did have a CXR in [place] ER and it was normal. She has never had a lung function test and will check it to see if this shows any issues. [facility] Other 05-28-2023 Evaluation note* Encounter Date Diagnosis Assessment Notes Treatment Notes Treatment Clinical Notes June, Bronchitis (ICD-10 - J40) Acute bronchitis material was printed Drink plenty fluids, get plenty of rest. Take the doxycycline as prescribed until gone. Continue to take your mucus relief medication. Run a coolmist humidifier to bedside. Try to stop smoking. Follow-up with your family physician if no improvement in 2 to 3 days Patient declines prescription for prednisone or albuterol inhaler. She states these medications give her panic attacks. [facility] Other 04-27-2023 Evaluation note* Encounter Date Diagnosis Assessment Notes Treatment Notes Treatment Clinical Notes May, Severe episode of recurrent major depressive disorder, without psychotic features (ICD-10 - F33.2) Doing well on buspirone 30 mg twice daily and is to continue this. May, Anxiety (ICD-10 - F41.9) She states things are going well with her mental health and is only using the Klonopin very sparingly. She is still taking the Remeron 45 mg nightly. She did state she is no longer seeing Dr. Kyle but is doing counseling and feels things are going very well. May, Fibromyalgia (ICD-10 - M79.7) Stable on current medications and lifestyle. May, Vitamin D deficiency (ICD-10 - E55.9) Will recheck Vit. D. May, Menorrhagia with regular cycle (ICD-10 - N92.0) Patient is following with Biostatistician and she was encouraged to do so. May, Medication monitoring encounter (ICD-10 - Z51.81) [facility] Other 10-17-2022 Evaluation note* Encounter Date Diagnosis Assessment Notes Treatment Notes Treatment Clinical Notes Nov, Well adult exam (ICD-10 - Z00.00) 46-year-old female with several acute complaints today that some of them are related to her chronic medical conditions and some are not. UA was performed today and there is blood but she is also on her period today and therefore he will be sent for culture and she will be contacted with the results before any antibiotic will be sent in. On clinical exam she does not have any concerning signs for UTI. She feels her mental health is doing well and continues to follow with psychiatry for this. She is having increased muscle aches and pains which certainly could be related to her fibromyalgia. She has increased hand pain and stiffness and will have x-rays to assess for arthritis and sent to physical therapy. She will also be referred to gynecology as she is due for cervical cancer screening and needs an IUD removal as well as has multiple gynecological complaints. We will get a basic set of labs on her to check hormone levels so they can have the results of this prior to the appointment. She will be contacted with these results and is to follow-up in 6 months or sooner if any acute issue arises. Nov, Flank pain (ICD-10 - R10.9) Nov, Severe episode of recurrent major depressive disorder, without psychotic features (ICD-10 - F33.2) Nov, Anxiety (ICD-10 - F41.9) Nov, Hot flashes (ICD-10 - R23.2) Nov, Fibromyalgia (ICD-10 - M79.7) Nov, Pain in joints of right hand (ICD-10 - M25.541) Will send to PT Nov, Pain in joints of left hand (ICD-10 - M25.542) Nov, Pap smear for cervical cancer screening (ICD-10 - Z12.4) Nov, Encounter for screening for cardiovascular disorders (ICD-10 - Z13.6) Nov, Medication monitoring encounter (ICD-10 - Z51.81) [facility] Other 08-01-2022 Evaluation note* Encounter Date Diagnosis Assessment Notes Treatment Notes Treatment Clinical Notes Sep, Poor appetite (ICD-10 - R63.0) Patient has decreased appetite and decreased access to food and nutrition and this is directly related to her losing weight. Sep, Dysuria (ICD-10 - R30.0) Patient's urine will be sent for culture and will await results before putting her on any treatment. Sep, Underweight (ICD-10 - R63.6) Patient is now underweight with a BMI of 17 and because of this we will order nutritional supplements for her. She needs to continue to try and increase her oral intake of solid foods and nutrition when she can get access to it. Sep, BMI less than 19,adult (ICD-10 - Z68.1) Sep, Vitamin D deficiency (ICD-10 - E55.9) Patient has a history of vitamin D deficiency and we will recheck labs for her vitamin D level. She will be contacted with results. [facility] Other 04-25-2022 Evaluation note* Encounter Date Diagnosis Assessment Notes Treatment Notes Treatment Clinical Notes May, Diarrhea of presumed infectious origin (ICD-10 - R19.7) Again I have not seen this patient in more than 2 years and she simply made an appointment due to the fact that apparently she had C. difficile in the past. I am not 100% certain if C. difficile again is present patient then went on to tell me she recently was given 2 rounds of antibiotics for some thing that she did not elaborate on. Nonetheless I would need a C. difficile specimen for which she told me she submitted one in [place] today which I have no idea how long that will take to get back. I therefore gave her another order to be done here at the hospital so we could quickly get any answer. She is to go submit the specimen today. If positive obviously we can get her on therapy. I told her if there is a problem where she clinically cannot keep food down or she feels she is dehydrating she needs to go the emergency room. [facility] Other 04-14-2022 Evaluation note* Encounter Date Diagnosis Assessment Notes Treatment Notes Treatment Clinical Notes May, Acute cystitis with hematuria (ICD-10 - N30.01) Patient was diagnosed with a UTI and was placed on Keflex. Urine culture shows that the E. coli would be sensitive to Keflex however patient has not been taking it is prescribed. Because of this there is concerned that the treatment may be failing and she may still be having symptoms of UTI. Urinalysis was obtained today and there is still a trace amount of blood but it is improved compared to the one in the ER. Will send for culture just to be on the safe side instructed patient to start taking the prescription as prescribed by the emergency room and finish it out. May, Weight loss (ICD-10 - R63.4) Patient has had significant weight loss and is complaining of heart palpitations therefore lab work will be obtained to assess her electrolyte levels as well as her thyroid function. Patient did recently have lab work in the emergency room which did show some mild hypokalemia but did not show any other significant abnormalities. More concerned that she has a thyroid problem but also I did instruct her that this could all be anxiety and stress related which she does voiced understanding to. May, Heart palpitations (ICD-10 - R00.2) May, Hypokalemia (ICD-10 - E87.6) [facility] Other 10-14-2021 Evaluation note* Encounter Date Diagnosis Assessment Notes Treatment Notes Treatment Clinical Notes Nov, Dysuria (ICD-10 - R30.0) No evidence today of UTI and patient properly treated recently with Macrobid. Recent urine Cx was negative for bacteria. Nov, Acute vaginitis (ICD-10 - N76.0) Patient was properly treated with Flagyl. Nov, Diarrhea, unspecified type (ICD-10 - R19.7) Patient has started having 3-4 diarrhea episodes daily after her recent abx. With her hx of C. Diff this is concerning especially with her recurring symptoms of infection. She will have stool studies obtained and will contact with the results. Nov, Hx of Clostridium difficile infection (ICD-10 - Z86.19) [facility] Other Evaluation noteNo [employer] Other Evaluation noteNo assessment information available [facility] Work Phone: Evaluation note* Diagnosis Calcification of right breast on mammography- Primary documented in this encounter [facility] [employer] [facility]* Diagnosis Abnormal mammogram- Primary Abnormal mammogram, unspecified documented in this encounter [facility]* Diagnosis Abnormal mammogram of right breast- Primary documented in this encounter [facility]* Diagnosis Breast calcification, right- Primary Other (abnormal) findings on radiological examination of breast documented in this encounter [employer] SystemEvaluation note* Diagnosis Onset Date Resolution Status Generalized anxiety disorder with panic attacks acute Depression chronic Hypokalemia chronic Vitamin D deficiency chronic [facility] Work Phone: Evaluation note* Diagnosis Onset Date Resolution Status High risk sexual behavior no neactive [facility] Work Phone: Evaluation note* Diagnosis Onset Date Resolution Status Admit Date Fibromyalgia chronic April 2:49pm Atypical chest pain noneactive Febru 2024 2:49pm [facility] Work Phone: Hisaymk general Narrative - Reported* Type Description Date Medical History Seizure disorder Medical History Panic attacks Medical History Lupus Medical History Arsenic poisoning Medical History Mercury poisoning Medical History fibromyalgia Medical History depression Medical History bipolar Medical History stroke Medical History UTI Medical History positive GBS in urine Medical History hernia Surgical History hernia repair Surgical History lumpectomy Surgical History oral surgery Surgical History CC inguinal hernia repair, lymp h node removal 01/17/2019 Hospitalization History low [facility]+ 2006 Hospitalization History [facility] 2018 Hospitalization History see above [employer] Other InstructionsNot on filedocumented in this encounter [facility]Non[facility] SystemInstructionsNot on filedocumented in this encounter [facility] Summary Purpose Family History Relationship Condition Age at Onset Recorded Date/T devon Not Specified Heart disease Unknown Cerebrovascular accident (CVA) Unknown Diabetes mellitus Unknown family member Presence of cardiac pacemaker Unknown family member History of open heart surgery Unknown grandparent Diabetes mellitus Unknown Relationship Condition Age at Onset Recorded Date/T devon Not Specified Heart disease Unknown Cerebrovascular accident (CVA) Unknown Diabetes mellitus Unknown family member Presence of cardiac pacemaker Unknown family member History of open heart surgery Unknown grandparent Diabetes mellitus Unknown father Unknown Not Specified Unknown Relationship Condition Age at Onset Recorded Date/T devon mother Heart disease Unknown Cerebrovascular accident (CVA) Unknown Diabetes mellitus Unknown family member Presence of cardiac pacemaker Unknown family member History of open heart surgery Unknown grandparent Diabetes mellitus Unknown father Unknown mother Unknown Advance Directives Advance Directive Response Recorded Date/ Time Advance Directives No October 4:00pm Advance Directive Response Recorded Date/ Time Advance Directives No October 3:00pm Chief Complaint and Reason for Visit Chief Complaint R30.0 E55.9 Chief Complaint Acute cystitis with hematuria Chief Complaint 6 month follow up Reason for Visit Generalized anxiety disorder with panic attacks Depression Hypokalemia Vitamin D deficiency Chief Complaint STD check Chief Complaint STD check High risk sexual behavior Reason for Visit High risk sexual beh avior Chief Complaint Admit Date er follow up April 04, 2024 2 :49pm Reason for Visit Admit Date Fibromyalgia April 04, 2024 2 :49pm Atypical chest pain April 04, 2024 2 :49pm Reason for Referral Reason PAP and IUD removal, hormone testing for early menopause Diagnosis 1 Pap smear for cervic al cancer screening (Z12.4) Referral Organization [facility] Artis Wilkins Referring Provider First Name William Referring Provider Last Name Allan Referring Provider Specialty Family Prac chano Referred Organization [facility] Referred Address ,[place], [place],[address] Referred Provider Specialty OB - Gynecol ogy Referral Priority Routine Additional Source Comments INFORMATION SOURCE (unrecogn ized section and content) DATE CREATED AUTHOR 08/23/2017 [facility] DATE CREATED AUTHOR AUTHOR'S ORGANIZ ATION 02/07/2018 [facility] DATE CREATED AUTHOR AUTHOR'S ORGANIZ ATION 07/03/2022 [facility] DATE CREATED AUTHOR AUTHOR'S ORGANIZ ATION 03/28/2023 [facility] DATE CREATED AUTHOR AUTHOR'S ORGANIZ ATION 11/17/2023 [facility] DATE CREATED AUTHOR AUTHOR'S ORGANIZ ATION 04/03/2024 [facility] REASON FOR VISIT (unrecogniz ed section and content) post UTI/not feeling Arabella FOLLOW UPNo InformationLab resultsUC follow upAWVXR resultsOBGYN REFERRAL6 month Follow upLab resultsNo Informationupper respiratoryswollen lymph nodes in groinBack pain, kidneys feel inflamed, nausea, hot flashesNOT FEELING ANY BETTERUrine culture results Care Teams (unrecognized sec tion and content) Team Status: Active Member Role Status Dates William Lemus , DO Primary Care Provider Active Team Status: Inactive Member Role Status Dates William Lemus , DO Primary Care Provider, Attending Provider Active Delivery Assistant Relationship Specialty Start Date End Date William Lemus [address] [place] [id number] PCP - General Family Medicine 06/08/21 Delivery Assistant Relationship Specialty Start Date End Date William LemusDO [address] [place] [id number] PCP - General Family Medicine 06/08/21 Delivery Assistant Relationship Specialty Start Date End Date Tulio Lemusew StefaniaDO [address] [place] [address] [phone] PCP - General Family Medicine 06/08/21 Delivery Assistant Relationship Specialty Start Date End Date Allan William StefaniaDO [address] [place] [address] [phone] PCP - General Family Medicine 06/08/21 Team Status: Inactive Member Role Status Dates William Lemus DO Primary Care Provi dottie, Attending Provider Active Start: August 12, 2023 End: August 12, 2023 Team Status: Inactive Member Role Status Dates William Lemus DO Primary Care Provider Active Start: November 11, 2023 End: November 11, 2023 Gissel Lee APRN Attending Provider Active Start: November 11, 2023 End: November 11, 2023 Team Status: Inactive Member Role Status Dates Gissel Lee APRN Attending Provider Active Start: November 11, 2023 End: November 11, 2023 Team Status: Inactive Member Role Status Dates William N Allan , DO Primary Care Provi dottie, Attending Provider Active Start: April 04, 2024 End: April 04, 2024 Goals (unrecognized section and content) Goals may be documented in a n alternate section FOR RECORDS PERTAINING TO PATIENTS WHO ARE OR HAVE BEEN ENROLLED IN A CHEMICAL DEPENDENCY/SUBSTANCEABUSE PROGRAM, SOME INFORMATION MAY BE OMITTED. This clinical summary was aggregated from multiple sources. Caution should be exercised in using it in the provision of clinical care. This summary normalizes information from multiple sources, and as a consequence, information in this document may materially change the coding, format and clinical context of patient data. In addition, data may be omitted in some cases. CLINICAL DECISIONS SHOULD BE BASED ON THE PRIMARY CLINICAL RECORDS. [facility] [employer] [facility]. provides no warranty or guarantee of the accuracy or completeness of information in this document.
--- NOTE | 2024-04-05 14:38 | ED.GENADUL1 ---
HPI HPI - General Adult General Chief complaint: Extremity Problem, Nontraumatic Stated complaint: NECK PAIN, L SHOULDER PAIN, CAN'T GET FULL THOUGHT Time Seen by Provider: 04/05/24 14:03 Source: patient Mode of arrival: walk-in History of Present Illness HPI narrative: Patient presents to ED complaining of left-sided body aches and in general not feeling well. Patient states she has lupus and fibromyalgia and it is attacking her body. She said she was in the ER in [place] on Wednesday and had a full workup. She said she had a CAT scan of her head as well as full lab panel. Everything was normal and the doctor told her it is probably her fibromyalgia and lupus flaring up. Patient states she is unable to get her naproxen for another day and she feels like she is inflamed. She said when she took a bath today the left side of her face got flushed and hot and she was concerned. She came in for further evaluation. She said the pain started to come down into her neck and shoulder and a little bit onto the left chest and left arm. She said she had a stroke in the past when she was 37 years old. There are no focal neurological deficits on exam. Patient also states that she has had some flank pain and abdominal pain and basically pain all over. Related Data Home Medications ?Medication ?Instructions ?Recorded ?Confirmed clonazepam 0.5 mg tablet 0.5 mg PO Q8H PRN ANXIETY 08/07/22 08/07/22 Previous Rx's ?Medication ?Instructions ?Recorded methocarbamol 750 mg tablet 750 mg PO TID PRN pain #20 tabs 12/15/22 naproxen sodium 550 mg tablet 550 mg PO BID PRN pain #10 tabs 12/15/22 ondansetron 4 mg disintegrating 4 mg PO Q6H PRN nausea and 12/15/22 tablet vomiting #12 tabs naproxen sodium 550 mg tablet 550 mg PO Q12H pain #20 tabs 04/05/24 Allergies Allergy/AdvReac Type Severity Reaction Status Date / Time cyclobenzaprine (From Allergy Severe Hives Verified 08/07/22 15:45 Flexeril) dicyclomine (From Bentyl) Allergy Severe Hives Verified 08/07/22 15:45 doxycycline Allergy Severe shortness Verified 08/07/22 15:47 of breath iodine Allergy Severe Anaphylaxis Verified 08/07/22 15:45 prochlorperazine (From Allergy Severe Hives Verified 08/07/22 15:45 Compazine) morphine Allergy Unknown Verified 08/07/22 15:45 Opioid HPI Opioid Management Most Recent Opioid Data: Last Pain Scale 7 12/15/22 17:27 12/15/22 Review of Systems ROS Status of ROS 10 or more systems reviewed and unremarkable except as noted in history and below PFSH PFS Social History Smoking status: Former smoker Little interest or pleasure in doing things: not at all Feeling down, depressed, or hopeless: not at all Exam Narrative Exam Narrative: Time Seen: [] Vital Signs: [Per nurse's notes.] General: [Alert] Skin: [Warm, dry, no rash.] Head: [Normocephalic, atraumatic.] Neck: [Supple, trachea midline.] Eye: [Pupils are equal, round and reactive to light, extraocular movements are intact, normal conjunctiva.] Ears, nose, mouth and throat: oral mucosa moist. Cardiovascular: [Regular rate and rhythm, no murmur.] Respiratory: [Lungs are clear to auscultation, respirations are non-labored, breath sounds are equal.] Chest wall: [No tenderness, no deformity.] Gastrointestinal: [Soft, nontender, non distended, normal bowel sounds.] MSK: 5 out of 5 muscle strength x 4 extremities no calf pain or edema Lymphatics: [No lymphadenopathy.] Psychiatric: [Cooperative, appropriate mood & affect.] Neurological: [Alert and oriented to person, place, time, and situation, no focal neurological deficit observed.] Constitutional Vital Signs, click to edit/add: Last Vital Signs Temp 98.1 F 04/05/24 14:08 Pulse 58 L 04/05/24 15:22 Resp 16 04/05/24 15:22 BP 94/73 04/05/24 15:22 Pulse Ox 100 04/05/24 15:22 O2 Del Method Room Air 04/05/24 14:08 Course Vital Signs Vital signs: Vital Signs Temperature 98.1 F 04/05/24 14:08 Pulse Rate 68 04/05/24 14:08 Respiratory Rate 18 04/05/24 14:08 Blood Pressure 128/85 04/05/24 14:08 Pulse Oximetry 100 04/05/24 14:08 Oxygen Delivery Method Room Air 04/05/24 14:08 Temperature 98.1 F 04/05/24 14:08 Pulse Rate 58 L 04/05/24 15:22 Respiratory Rate 16 04/05/24 15:22 Blood Pressure 94/73 04/05/24 15:22 Pulse Oximetry 100 04/05/24 15:22 Oxygen Delivery Method Room Air 04/05/24 14:08 Medical Decision Making MDM Narrative Medical decision making narrative: Patient's labs are negative for any acute findings. Patient most likely has a fibromyalgia flare. She is unable to get her naproxen until tomorrow so a new prescription was written for her for [facility] because she said the [facility] not [facility] it. Patient is to return if anything worsens otherwise take the pain medication as directed. Follow-up with family doctor outpatient as scheduled Differential Diagnosis Differential Diagnosis: Viral syndrome, fibromyalgia, lupus flare, electrolyte abnormality Lab Data Lab results reviewed: Yes I reviewed the patient's lab results Labs: Lab Results 04/05/24 Range/Units 14:36 WBC 8.3 (4.0-11.0) 10^3/uL RBC 5.06 (4.20-5.40) 10^6/uL Hgb 15.3 (12.0-16.0) g/dL Hct 42.5 (36.0-48.0) % MCV 84.0 (81.0-99.0) fL MCH 30.2 (26.7-34.0) pg MCHC 36.0 H (29.9-35.2) g/dL RDW 12.0 (11.0-15.0) % Plt Count 360 (150-450) 10^3/uL MPV 9.4 L (9.5-13.5) fL Neut % (Auto) 64.6 (43.0-75.0) % Lymph % (Auto) 29.1 (20.5-60.0) % Pitkin % (Auto) 5.4 (1.7-12.0) % Eos % (Auto) 0.5 L (0.9-7.0) % Baso % (Auto) 0.2 (0.2-2.0) % Neut # (Auto) 5.3 (1.4-6.5) 10^3/uL Lymph # (Auto) 2.4 (1.2-3.8) 10^3/uL Pitkin # (Auto) 0.5 (0.3-0.8) 10^3/uL Eos # (Auto) 0.0 (0.0-0.7) 10^3/uL Baso # (Auto) 0.0 (0.0-0.1) 10^3/uL Abs Immat Gran (auto) 0.02 (0.00-0.03) 10^3/uL Imm/Tot Granulo (auto) 0.2 (0.0-0.5) % Sodium 140 (136-145) mmol/L Potassium 3.9 (3.5-5.1) mmol/L Chloride 104 (98-107) mmol/L Carbon Dioxide 22.9 (21.0-32.0) mmol/L Anion Gap 17.0 BUN 9.0 (7.0-18.0) mg/dL Creatinine 0.80 (0.55-1.02) mg/dL Est GFR ( Amer) >60 (>=60 mL/min/1.73m^2) Est GFR (Non-Af Amer) >60 (>=60 mL/min/1.73m^2) BUN/Creatinine Ratio 11.2 Glucose 91 (74-106) mg/dL Calcium 9.1 (8.5-10.1) mg/dL Total Bilirubin 0.5 (0.2-1.0) mg/dL AST 19 (15-37) U/L ALT 25 (14-59) U/L Alkaline Phosphatase 47 (46-116) U/L Troponin I High Sens 5.8 (4.0-51.3) pg/mL Total Protein 7.8 (6.4-8.2) g/dL Albumin 4.3 (3.4-5.0) g/dL Globulin 3.5 g/dL Albumin/Globulin Ratio 1.2 ECG Data Attestation: I personally reviewed and interpreted this ECG as follows: Interpretation: EKG INTERPRETATION Time: [] 1438 Rate: [] 57 Rhythm: _ [] Sinus bradycardia ST segments: _ [] No acute ST elevation or depression T waves: _ [] Ectopy: _ [] P wave/DC interval: _ [] QRS interval: _ [] QT interval: _ [] Comparison: _ [] Comparison EKG date: [] Performed by: [self] Discharge Plan Discharge Chief Complaint: Extremity Problem, Nontraumatic Clinical Impression: Fibromyalgia Patient Disposition: Home, Self-Care Time of Disposition Decision: 15:38 Condition: Good Mode of Transportation: Private Vehicle Prescriptions / Home Meds: New naproxen sodium 550 mg tablet 550 mg PO Q12H Qty: 20 0RF No Action clonazepam 0.5 mg tablet 0.5 mg PO Q8H PRN (Reason: ANXIETY ) methocarbamol 750 mg tablet 750 mg PO TID PRN (Reason: pain) Qty: 20 0RF ondansetron 4 mg tablet,disintegrating 4 mg PO Q6H PRN (Reason: nausea and vomiting) Qty: 12 0RF naproxen sodium 550 mg tablet 550 mg PO BID PRN (Reason: pain) Qty: 10 0RF Print Language: Norwegian Instructions: Fibromyalgia (ED) Referrals: WILLIAM LEMUS [Primary Care Provider] - 1 week
[2024-04-05] MEDS: KETOROLAC TROMETHAMINE 60 MG/2 ML VIAL IM (14:50)
[2024-04-05 14:55] LABS: Basophils Percent Auto 0.2 % (0.2-2.0); Eosinophils Percent Auto 0.5 % (0.9-7.0); Hematocrit 42.5 % (36.0-48.0); Hemoglobin 15.3 g/dL (12.0-16.0); Immature Granulocytes Abs Auto 0.02 10^3/uL (0.00-0.03); Immature Granulocytes Pct Auto 0.2 % (0.0-0.5); Lymphocytes Absolute Auto 2.4 10^3/uL (1.2-3.8); Lymphocytes Percent Auto 29.1 % (20.5-60.0); Mean Corpuscular Hemoglobin 30.2 pg (26.7-34.0); Mean Platelet Volume 9.4 fL (9.5-13.5); Monocytes Absolute Auto 0.5 10^3/uL (0.3-0.8); Monocytes Percent Auto 5.4 % (1.7-12.0); Neutrophils Absolute Auto 5.3 10^3/uL (1.4-6.5); Neutrophils Percent Auto 64.6 % (43.0-75.0); Platelet Count 360 10^3/uL (150-450); Red Blood Count 5.06 10^6/uL (4.20-5.40); White Blood Count 8.3 10^3/uL (4.0-11.0)
[2024-04-05 15:22] VITALS: BP 94/73; PULSE 58; O2SAT 100
[2024-04-05 15:30] LABS: Alanine Aminotransferase 25 U/L (14-59); Albumin Globulin Ratio 1.2; Albumin Level 4.3 g/dL (3.4-5.0); Alkaline Phosphatase 47 U/L (46-116); Aspartate Amino Transferase 19 U/L (15-37); BUN Creatinine Ratio 11.2; Bilirubin Total 0.5 mg/dL (0.2-1.0); Calcium 9.1 mg/dL (8.5-10.1); Carbon Dioxide 22.9 mmol/L (21.0-32.0); Chloride 104 mmol/L (98-107); Estimated GFR (African America >60 (>=60 mL/min/1.73m^2); Estimated GFR (Non-African Ame >60 (>=60 mL/min/1.73m^2); Globulin 3.5 g/dL; Glucose 91 mg/dL (74-106); Potassium 3.9 mmol/L (3.5-5.1); Sodium 140 mmol/L (136-145); Total Protein 7.8 g/dL (6.4-8.2); Troponin I High Sensitivity 5.8 pg/mL (4.0-51.3)
== END 2024-04-05 16:02 | disposition home or self-care (01) ==
PROVIDERS: Emergency Provider Emergency Medicine
DX: M79.7 Fibromyalgia (principal); Z86.73 Personal history of transient ischemic attack (TIA), and cerebral infarction without residual deficits; Z87.891 Personal history of nicotine dependence
CPT/HCPCS: 36415; 80053; 84484; 85025; 93005; 96372; 99285; J1885